=== PATIENT | female | born 1980 | race Caucasian/White ===

== ENCOUNTER 2017-01-31 12:23 | Emergency (ER) | payer OTHER ==
--- NOTE | 2017-01-31 13:32 | ED ---
General Adult HPI - General Chief complaint: Recheck/Abnormal Lab/Rx Stated complaint: Back Pain/Hypertension Time Seen by Provider: 01/31/17 13:09 Source: patient, RN notes reviewed Mode of arrival: ambulatory Limitations: no limitations - History of Present Illness Initial comments: Patient 36-year-old female who presents emergency room today with a chief complaint of elevated blood pressure. She does admit that she was trying to donate plasma earlier today and her blood pressure was elevated. She states that the bottom number was over 100. Patient also admits to some mild lower back discomfort. She states worse with movements. Denies any injury or trauma. States she does not take any blood pressure medication. She denies any other complaints or associated symptoms. Patient denies any recent fever, chills, shortness of breath, chest pain, abdominal pain, nausea or vomiting, numbness or tingling, dysuria or hematuria, constipation or diarrhea, headaches or visual changes, or any other complaints. - Related Data Home Medications Medication Instructions Recorded Confirmed Pnv with Ca,No.72/Iron/FA 1 tab PO DAILY 08/11/14 03/26/16 [ Plus Multivitamin Tab] Ergocalciferol [Vitamin D2] 50,000 unit PO Q7D 03/26/16 03/26/16 Previous Rx's Medication Instructions Recorded Labetalol [Trandate] 100 mg PO BID #60 tablet 03/27/16 Allergies Allergy/AdvReac Type Severity Reaction Status Date / Time No Known Allergies Allergy Verified 07/18/16 18:28 Review of Systems ROS Statement: Those systems with pertinent positive or pertinent negative responses have been documented in the HPI. ROS Other: All systems not noted in ROS Statement are negative. Past Medical History Past Medical History: No Reported History, Diabetes Mellitus Additional Past Medical History / Comment(s): Gestational diabetes with first obesity History of Any Multi-Drug Resistant Organisms: None Reported Past Surgical History: No Surgical Hx Reported, Section Additional Past Surgical History / Comment(s): D&C Past Anesthesia/Blood Transfusion Reactions: No Reported Reaction Past Psychological History: Bipolar, Depression Smoking Status: Never smoker Past Alcohol Use History: None Reported Past Drug Use History: None Reported - Past Family History Father History Unknown: Yes Family Medical History: Diabetes Mellitus, Sleep Apnea/CPAP/BIPAP General Exam Limitations: no limitations Course Vital Signs 01/31/17 13:02 Temperature 98.6 F Pulse Rate 95 Respiratory 16 Rate Blood Pressure 135/86 O2 Sat by Pulse 100 Oximetry Medical Decision Making - Medical Decision Making Patient's blood pressure stable here in the emergency room. Advised to continue to check blood pressure daily and take longer to family doctor. Patient's test is negative. Advised to use Tylenol/ibuprofen for back pain as needed. Advised return to emergency room for any other concerns. Disposition Clinical Impression: Blood pressure check, Low back pain Disposition: HOME SELF-CARE Condition: Good Instructions: Hypertension (ED) Additional Instructions: Please continue to monitor blood pressure as discussed follow-up the family doctor over the next 2 days. Please use Tylenol/ibuprofen as needed for pain. Please return to emergency room symptoms increase worsen or for any other concerns. Referrals: Ghassan Dacosta MD [Primary Care Provider] - 1-2 days Time of Disposition: 13:59
[2017-01-31 13:55] VITALS: BP 140/68; PULSE 91; RESP 18; TEMP 97.9
== END 2017-01-31 14:19 | disposition home or self-care (01) ==
LOC: EC 12:23
DX: Z01.30 Encounter for examination of blood pressure without abnormal findings (principal); M54.5 Low back pain; E66.9 Obesity, unspecified; Z68.43 Body mass index [BMI] 50.0-59.9, adult; Z79.899 Other long term (current) drug therapy
CPT/HCPCS: 81025; 99283

== ENCOUNTER 2018-04-20 12:47 | Emergency (ER) | payer OTHER ==
[2018-04-20 12:55] VITALS: RESP 18; TEMP 98.1
--- NOTE | 2018-04-20 13:39 | ED ---
General Adult HPI - General Chief complaint: Abdominal Pain Stated complaint: Left side pain & cramping Time Seen by Provider: 04/20/18 13:04 Source: patient, RN notes reviewed Mode of arrival: ambulatory Limitations: no limitations - History of Present Illness Initial comments: 37-year-old female presented emergency room today with a chief complaint of abdominal pain located on the left side and upper abdomen. Patient does admit that she's not had a motorcycle last 2 months. She does not that she's had some cramping lower abdomen. Patient states that she can feel pain left flank area. Patient denies any other symptoms. Patient denies any recent fever, chills, shortness of breath, chest pain, back pain, numbness or tingling, dysuria or hematuria, constipation or diarrhea, headaches or visual changes, or any other complaints. - Related Data Home Medications Medication Instructions Recorded Confirmed Citalopram Hydrobromide [CeleXA] 40 mg PO QAM 01/31/17 04/20/18 busPIRone HCL [Buspar] 30 mg PO TID 04/20/18 04/20/18 traZODone HCL 100 mg PO HS 04/20/18 04/20/18 Allergies Allergy/AdvReac Type Severity Reaction Status Date / Time No Known Allergies Allergy Verified 04/20/18 13:16 Review of Systems ROS Statement: Those systems with pertinent positive or pertinent negative responses have been documented in the HPI. ROS Other: All systems not noted in ROS Statement are negative. Past Medical History Past Medical History: No Reported History, Diabetes Mellitus Additional Past Medical History / Comment(s): Gestational diabetes with first obesity History of Any Multi-Drug Resistant Organisms: None Reported Past Surgical History: No Surgical Hx Reported, Section Additional Past Surgical History / Comment(s): D&C Past Anesthesia/Blood Transfusion Reactions: No Reported Reaction Past Psychological History: Bipolar, Depression Smoking Status: Never smoker Past Alcohol Use History: None Reported Past Drug Use History: None Reported - Past Family History Father History Unknown: Yes Family Medical History: Diabetes Mellitus, Sleep Apnea/CPAP/BIPAP General Exam - General Exam Comments Initial Comments: General: The patient is awake and alert, in no distress, and does not appear acutely ill. Eye: Pupils are equal, round and reactive to light. Extra-ocular movements are intact. No nystagmus. There is normal conjunctiva bilaterally. No signs of icterus. Ears, nose, mouth and throat: There are moist mucous membranes and no oral lesions. Neck: The neck is supple, there is no tenderness or JVD. Cardiovascular: There is a regular rate and rhythm. No murmur, rub or gallop is appreciated. Respiratory: Lungs are clear to auscultation, respirations are non-labored, breath sounds are equal. No wheezes, stridor, rales, or rhonchi. Gastrointestinal: Soft, non-distended, non-tender abdomen without masses or organomegaly noted. There is no rebound or guarding present. No CVA tenderness. Musculoskeletal: Normal ROM, no tenderness. Sensation intact. Strength 5/5. Pulses equal bilaterally 2+. Neurological: A&O x 3. CN II-XII intact, There are no obvious motor or sensory deficits. Coordination appears grossly intact. Speech is normal. Skin: Skin is warm and dry and no rashes or lesions are noted. Psychiatric: Cooperative, appropriate mood & affect, normal judgment. Limitations: no limitations Course Vital Signs 04/20/18 12:52 Temperature 98.1 F Pulse Rate 109 H Respiratory 18 Rate Blood Pressure 124/81 O2 Sat by Pulse 97 Oximetry Medical Decision Making - Medical Decision Making Ultrasound shows sonographic findings were compatible with antibiotics of ptosis. No sonographic evidence for cholelithiasis or cystitis. Spleen upper limits of normal. Results were discussed with the patient she did have a negative test here in the emergency room. Patient's doing well at this times been up moving around freely. Patient had an soft on palpation. Patient's labs reviewed. Patient will be discharged advised follow-up she does have an appointment with her OB in 2 days. Advised follow-up the family doctor in the emergency room symptoms increase or worsen. - Lab Data Result diagrams: 04/20/18 13:26 04/20/18 13:26 Lab Results 04/20/18 04/20/18 04/20/18 Range/Units 13:26 13:26 13:26 WBC 11.5 H (3.8-10.6) k/uL RBC 4.51 (3.80-5.40) m/uL Hgb 13.8 (11.4-16.0) gm/dL Hct 40.1 (34.0-46.0) % MCV 89.0 (80.0-100.0) fL MCH 30.7 (25.0-35.0) pg MCHC 34.5 (31.0-37.0) g/dL RDW 13.1 (11.5-15.5) % Plt Count 286 (150-450) k/uL Neutrophils % 66 % Lymphocytes % 24 % Monocytes % 5 % Eosinophils % 3 % Basophils % 1 % Neutrophils # 7.6 (1.3-7.7) k/uL Lymphocytes # 2.8 (1.0-4.8) k/uL Monocytes # 0.5 (0-1.0) k/uL Eosinophils # 0.3 (0-0.7) k/uL Basophils # 0.1 (0-0.2) k/uL Sodium 140 (137-145) mmol/L Potassium 4.4 (3.5-5.1) mmol/L Chloride 111 H (98-107) mmol/L Carbon Dioxide 25 (22-30) mmol/L Anion Gap 4 mmol/L BUN 21 H (7-17) mg/dL Creatinine 0.71 (0.52-1.04) mg/dL Est GFR (CKD-EPI)AfAm >90 (>60 ml/min/1.73 sqM) Est GFR (CKD-EPI)NonAf >90 (>60 ml/min/1.73 sqM) Glucose 98 (74-99) mg/dL Calcium 9.3 (8.4-10.2) mg/dL Total Bilirubin 0.7 (0.2-1.3) mg/dL AST 33 (14-36) U/L ALT 41 (9-52) U/L Alkaline Phosphatase 68 (38-126) U/L Total Protein 6.7 (6.3-8.2) g/dL Albumin 3.6 (3.5-5.0) g/dL Amylase 45 (30-110) U/L Lipase 52 (23-300) U/L HCG, Qual Not Detected Urine Color Yellow Urine Appearance Cloudy H (Clear) Urine pH 6.0 (5.0-8.0) Ur Specific [place] 1.021 (1.001-1.035) Urine Protein Negative (Negative) Urine Glucose (UA) Negative (Negative) Urine Ketones Negative (Negative) Urine Blood Negative (Negative) Urine Nitrite Negative (Negative) Urine Bilirubin Negative (Negative) Urine Urobilinogen <2.0 (<2.0) mg/dL Ur Leukocyte Esterase Small H (Negative) Urine RBC 1 (0-5) /hpf Urine WBC 1 (0-5) /hpf Ur Squamous Epith Cells 7 H (0-4) /hpf Urine Bacteria Rare H (None) /hpf Urine Mucus Rare H (None) /hpf Disposition Clinical Impression: Abdominal pain Disposition: HOME SELF-CARE Condition: Good Instructions: Abdominal Pain (ED) Additional Instructions: Please follow-up with CORRECTIONAL THERAPY DIRECTOR/family doctor in the next 2 days of symptoms have not improved. Please return to emergency room if the symptoms increase or worsen or for any other concerns. Is patient prescribed a controlled substance at d/c from ED?: No Referrals: Ghassan Dacosta MD [Primary Care Provider] - 1-2 days Time of Disposition: 15:02
[2018-04-20 13:42] LABS: Basophils # (A) 0.1 k/uL (0-0.2); Basophils % (A) 1 %; Eosinophils # (A) 0.3 k/uL (0-0.7); Eosinophils % (A) 3 %; HCT 40.1 % (34.0-46.0); HGB 13.8 gm/dL (11.4-16.0); Lymphocytes # (A) 2.8 k/uL (1.0-4.8); Lymphocytes % (A) 24 %; MCH 30.7 pg (25.0-35.0); MCHC 34.5 g/dL (31.0-37.0); Mean Platelet Volume 6.9; Monocytes # (A) 0.5 k/uL (0-1.0); Monocytes % (A) 5 %; Neutrophils # (A) 7.6 k/uL (1.3-7.7); Neutrophils % (A) 66 %; Platelet Count 286 k/uL (150-450); RBC 4.51 m/uL (3.80-5.40); RDW 13.1 % (11.5-15.5); WBC 11.5 k/uL (3.8-10.6)
[2018-04-20 13:48] LABS: HCG,Qualitative Serum Not Detected
[2018-04-20 13:50] LABS: Appearance,Urine Cloudy (Clear); Bacteria,Urine Rare /hpf; Bilirubin,Urine Negative (Negative); Blood,Urine Negative (Negative); Color,Urine Yellow; Glucose,Urine (UA) Negative (Negative); Ketones,Urine Negative (Negative); Leukocyte Esterase,Urine Small (Negative); Mucus,Urine Rare /hpf; Nitrite,Urine Negative (Negative); Protein,Urine Negative (Negative); RBC,Urine 1 /hpf (0-5); Specific Gravity,Urine 1.021 (1.001-1.035); Squamous Epithelial Cell,Urine 7 /hpf (0-4); Urobilinogen,Urine <2.0 mg/dL (<2.0)
[2018-04-20 13:51] LABS: ALT 41 U/L (9-52); AST 33 U/L (14-36); Albumin 3.6 g/dL (3.5-5.0); Alkaline Phosphatase 68 U/L (38-126); Amylase 45 U/L (30-110); Anion Gap 4 mmol/L; Blood Urea Nitrogen 21 mg/dL (7-17); Calcium 9.3 mg/dL (8.4-10.2); Carbon Dioxide 25 mmol/L (22-30); Chloride 111 mmol/L (98-107); Glucose 98 mg/dL (74-99); Lipase 52 U/L (23-300); Potassium 4.4 mmol/L (3.5-5.1); Sodium 140 mmol/L (137-145); Total Bilirubin 0.7 mg/dL (0.2-1.3); Total Protein 6.7 g/dL (6.3-8.2)
--- NOTE | 2018-04-20 14:33 | US ---
EXAMINATION TYPE: US abdomen complete DATE OF EXAM: 04/20/2018 COMPARISON: NONE CLINICAL HISTORY: Pain. Abdominal pain for 1 week EXAM MEASUREMENTS: Liver Length: 20.2 cm Gallbladder Wall: 0.2 cm CBD: 0.4 cm Spleen: 13.1 cm Right Kidney: 11.0 x 4.8 x 5.0 cm Left Kidney: 12.4 x 5.4 x 4.9 cm Extreme technical limitations due to patient's body habitus (330+ pounds) and large amount of overl adi bowel content Pancreas: Obscured by bowel gas Liver: enlarged, attenuating Gallbladder: no evidence of stones Evidence for sonographic Streeter's sign: yes CBD: limited evaluation Spleen: upper limits of normal Right Kidney: no evidence of hydronephrosis Left Kidney: slightly lobulated contour upper pole thought to represent a dromedary hump Upper IVC: wnl Abd Aorta: visualized portions appear wnl, distal/bifurcation obscured The intrahepatic portion of the IVC and proximal abdominal aorta are within normal limits. There is no evidence of cholelithiasis. Common bile duct is unremarkable. The visualized portions of the aquino creas are homogenous. The spleen is unremarkable. Kidneys are symmetric and free of hydronephrosis. No renal lesions are seen. IMPRESSION: 1. Sonographic findings most compatible with hepatic steatosis overall moderate degree. 2. No sonographic evidence of cholelithiasis or acute cholecystitis. 3. Spleen is upper limits of normal size.
[2018-04-20 15:13] VITALS: BP 98/58; PULSE 93
== END 2018-04-20 15:14 | disposition home or self-care (01) ==
LOC: EC 12:47
DX: R10.12 Left upper quadrant pain (principal); F31.9 Bipolar disorder, unspecified; Z32.02 Encounter for pregnancy test, result negative; Z79.899 Other long term (current) drug therapy
CPT/HCPCS: 36415; 76700; 80053; 81001; 82150; 83690; 84703; 85025; 99284

== ENCOUNTER → 2018-05-04 | Outpatient (CLI) | payer OTHER ==
[2018-05-04 09:26] LABS: HCT 37.8 % (34.0-46.0); HGB 12.7 gm/dL (11.4-16.0); MCH 29.8 pg (25.0-35.0); MCHC 33.5 g/dL (31.0-37.0); MCV 88.8 fL (80.0-100.0); Mean Platelet Volume 6.8; Platelet Count 250 k/uL (150-450); RBC 4.25 m/uL (3.80-5.40); WBC 7.9 k/uL (3.8-10.6)
[2018-05-04 16:41] LABS: ALT 27 U/L (8-44); AST 27 U/L (13-35); Albumin/Globulin Ratio 2.05 (1.20-2.10); Alkaline Phosphatase 85 U/L (41-126); Calcium 8.7 mg/dL (8.7-10.3); Carbon Dioxide 25.6 mmol/L (21.6-31.8); Chloride 108 mmol/L (96-109); Globulin 1.9 g/dL (2.1-3.7); Glucose 121 mg/dL (70-110); Sodium 141 mmol/L (135-145); Total Bilirubin 0.6 mg/dL (0.3-1.2); Total Protein 5.8 g/dL (6.2-8.2)
[2018-05-04 16:47] LABS: DHEA Sulfate 98.4 ug/dL (26.0-430.0)
[2018-05-04 16:49] LABS: Sex Horm Bind Glob 68.4 nmol/L (10.84-180.00)
[2018-05-04 16:51] LABS: HCG,Quantitative Serum <2.0 mIU/mL
[2018-05-04 20:09] LABS: Hemoglobin A1C 5.5 % (4.0-6.0)
[2018-05-05 13:58] LABS: Anti-Mullerian Hormone 0.61 ng/mL (0.18 - 5.68)
== END ==
LOC: LABWHC1 08:46
PROVIDERS: ATTEND Obstetrics & Gynecology
DX: N91.1 Secondary amenorrhea (principal); E66.01 Morbid (severe) obesity due to excess calories
CPT/HCPCS: 36415; 80053; 82157; 82397; 82627; 83001; 83036; 83498; 83525; 84146; 84270; 84403; 84443; 84702; 85027

== ENCOUNTER 2018-11-23 22:00 | Emergency (ER) | payer OTHER ==
--- NOTE | 2018-11-23 23:45 | ED ---
Abdominal Pain HPI - General Chief Complaint: Abdominal Pain Stated Complaint: left side abdominal pain Time Seen by Provider: 11/23/18 23:28 Source: patient Mode of arrival: ambulatory Limitations: no limitations - History of Present Illness Initial Comments: This patient is a 38-year-old woman who presents to have reevaluation of a lipoma located in the left upper quadrant of the abdominal wall. The patient states that she had been having symptoms for over 2 months. She was seen at [facility] where the diagnosis was made approximately 2 months ago. She states that over the past few weeks it is been flaring up. She notes that it is tender when she presses on it. She is not having any symptoms that she believes indicate infection, including no fever or chills. No redness or warmth. No drainage. Patient states that when she is not pressing on it is not causing any pain. No nausea or vomiting. No diarrhea or constipation. No urinary symptoms. MD Complaint: other Onset/Timin -: month(s) Location: [facility] Radiation: none Severity: mild Quality: dull Consistency: constant Improves With: nothing Worsens With: nothing Associated Symptoms: denies other symptoms - Related Data Home Medications Medication Instructions Recorded Confirmed Citalopram Hydrobromide [CeleXA] 40 mg PO QAM 01/31/17 04/20/18 busPIRone HCL [Buspar] 30 mg PO TID 04/20/18 04/20/18 traZODone HCL 100 mg PO HS 04/20/18 04/20/18 Allergies Allergy/AdvReac Type Severity Reaction Status Date / Time No Known Allergies Allergy Verified 11/23/18 22:10 Review of Systems ROS Statement: Those systems with pertinent positive or pertinent negative responses have been documented in the HPI. ROS Other: All systems not noted in ROS Statement are negative. Constitutional: Denies: fever, chills Respiratory: Denies: cough Cardiovascular: Denies: chest pain Gastrointestinal: Reports: as per HPI, abdominal pain. Denies: nausea, vomiting, diarrhea, constipation Genitourinary: Denies: dysuria, hematuria Musculoskeletal: Denies: back pain Skin: Denies: rash Past Medical History Past Medical History: Diabetes Mellitus Additional Past Medical History / Comment(s): Gestational diabetes with first obesity History of Any Multi-Drug Resistant Organisms: None Reported Past Surgical History: No Surgical Hx Reported, Section Additional Past Surgical History / Comment(s): D&C Past Anesthesia/Blood Transfusion Reactions: No Reported Reaction Past Psychological History: Bipolar, Depression Smoking Status: Never smoker Past Alcohol Use History: None Reported Past Drug Use History: None Reported - Past Family History Father History Unknown: Yes Family Medical History: Diabetes Mellitus, Sleep Apnea/CPAP/BIPAP General Exam Limitations: no limitations General appearance: alert, in no apparent distress Respiratory exam: Present: normal lung sounds bilaterally. Absent: respiratory distress, wheezes, rales, rhonchi, stridor Cardiovascular Exam: Present: regular rate, normal rhythm, normal heart sounds. Absent: systolic murmur, diastolic murmur, rubs, gallop GI/Abdominal exam: Present: soft, mass (There is an approximately 2-3 cm mobile, rubbery, mass in the left upper quadrants abdominal wall that is consistent with lipoma. There is no tenderness it within the abdomen itself.). Absent: distended, tenderness, guarding, rebound, rigid Skin exam: Present: warm, dry, intact, normal color. Absent: rash Course Vital Signs 11/23/18 22:08 Temperature 98.1 F Pulse Rate 116 H Respiratory 22 Rate Blood Pressure 131/81 O2 Sat by Pulse 99 Oximetry Disposition Clinical Impression: Lipoma Disposition: HOME SELF-CARE Condition: Good Is patient prescribed a controlled substance at d/c from ED?: No Referrals: Ghassan Dacosta MD [Primary Care Provider] - 1-2 days Perez Brito MD [STAFF PHYSICIAN] - 1-2 days
[2018-11-24 00:25] VITALS: BP 134/91; PULSE 100; RESP 20; TEMP 97
== END 2018-11-24 00:22 | disposition home or self-care (01) ==
LOC: EC 22:00
DX: D17.1 Benign lipomatous neoplasm of skin and subcutaneous tissue of trunk (principal); F32.9 Major depressive disorder, single episode, unspecified; E66.9 Obesity, unspecified; Z68.43 Body mass index [BMI] 50.0-59.9, adult; Z79.899 Other long term (current) drug therapy
CPT/HCPCS: 99283

== ENCOUNTER 2018-12-10 06:57 | Day surgery (SDC) | payer OTHER ==
[2018-12-07 13:19] VITALS: BMI 57.3
[~2018-12-10 06:57] MED LIST: DEXAMETHASONE SOD PHOSPHATE 10 MG/ML 1 ML VIAL IV ONE; HYDROmorphone 0.5 MG/0.5 ML SYRINGE IVP PRN; LACTATED RINGERS 1,000 ML IV SCH; MIDAZOLAM 2 MG/2 ML VIAL IV PRN; ONDANSETRON 4 MG/2 ML VIAL IVP ONE; SCOPOLAMINE 1.5MG/72HR PATCH TRANSDERM ONE
[2018-12-10] MEDS ORDERED: HEPARIN SODIUM,PORCINE 5,000 UNIT/ML 1 ML VIAL SQ ONE (07:37)
--- NOTE | 2018-12-10 08:44 | P.GSHP ---
History of Present Illness H&P Date: 12/10/18 Chief Complaint: Abdominal wall lipoma This is a 30-year-old female who has a 10 cm abdominal wall lipoma located left upper quadrant. Patient resents today for excision. Past Medical History Past Medical History: Hyperlipidemia Additional Past Medical History / Comment(s): Gestational diabetes with first , History of Any Multi-Drug Resistant Organisms: None Reported Past Surgical History: Section Additional Past Surgical History / Comment(s): D&C Past Anesthesia/Blood Transfusion Reactions: No Reported Reaction Smoking Status: Never smoker - Past Family History Father History Unknown: Yes Family Medical History: Diabetes Mellitus Medications and Allergies Home Medications Medication Instructions Recorded Confirmed Type Citalopram Hydrobromide [CeleXA] 40 mg PO QAM 01/31/17 12/10/18 History busPIRone HCL [Buspar] 30 mg PO TID 04/20/18 12/10/18 History traZODone HCL 100 mg PO HS 04/20/18 12/10/18 History Atorvastatin [Lipitor] 10 mg PO HS 12/07/18 12/10/18 History Multivitamin [Multivitamins Adult 1 each PO DAILY 12/07/18 12/10/18 History Gummies] Allergies Allergy/AdvReac Type Severity Reaction Status Date / Time No Known Allergies Allergy Verified 12/10/18 07:16 Surgical - Exam Vital Signs Temp Pulse Resp BP Pulse Ox 97.6 F 101 H 17 138/93 98 12/10/18 07:24 12/10/18 07:24 12/10/18 07:24 12/10/18 07:24 12/10/18 07:24 - General well developed, well nourished, no distress - Eyes PERRL - ENT normal pinna - Neck no masses - Respiratory normal expansion - Cardiovascular Rhythm: regular - Abdomen Abdomen: soft, non tender - Integumentary 10 cm abdominal wall lipoma located left upper quadrant. Assessment and Plan Assessment: Abdominal wall lipoma. We'll perform excision.
[2018-12-10] MEDS ORDERED: fentaNYL (PF) 50 MCG/ML 2 ML AMP ONE (08:50)
[2018-12-10] MEDS ORDERED: ESMOLOL 100 MG/10 ML VIAL ONE (08:50)
[2018-12-10] MEDS ORDERED: PROPOFOL 10 MG/ML 20 ML VIAL IV ONE (08:50)
[2018-12-10] MEDS ORDERED: HYDROmorphone (PF) 1 MG/ML ONE (08:50)
[2018-12-10] MEDS ORDERED: MIDAZOLAM 2 MG/2 ML VIAL ONE (08:50)
[2018-12-10] MEDS ORDERED: LIDOCAINE 1% INJ 10MG/ML (20 ML MDV) ONE (08:50)
[2018-12-10] MEDS ORDERED: KETAMINE 10 MG/ML 20 ML VIAL ONE (08:50)
[2018-12-10] MEDS ORDERED: BUPIVACAINE (PF) 0.5% 30 ML VIAL SQ ONE ×2 (09:11)
[2018-12-10] MEDS ORDERED: SODIUM CHLORIDE 0.9% 50 ML with ceFAZolin 2,000 MG IV ONE ×2 (09:15)
--- NOTE | 2018-12-10 09:48 | P.OP ---
Date of Procedure: 12/10/18 Preoperative Diagnosis: Abdominal wall lipoma Postoperative Diagnosis: Abdominal wall lipoma Procedure(s) Performed: Excision of abdominal wall lipoma Anesthesia: MAC Surgeon: Perez Brito Estimated Blood Loss (ml): 5 Pathology: other (Left upper quadrant abdominal wall lipoma) Condition: stable Disposition: PACU Description of Procedure: The patient's placed in the table in the supine position. She received IV sedation. Her abdomen was prepped and draped usual sterile fashion. The patient had a 10 cm lipoma located in the left upper quadrant. The area was anesthetized 1% local Xylocaine. The skin was incised with 15 blade and then using electrocautery the lipoma was excised. The lipoma measured approximately 5 x 10 cm. The specimen sent to pathology. A BRITTNI drain was placed the wound brought through separate stab incision The Bovie was used for hemostasis. The skin was closed with brigette. Patient top she will was sent to recovery in stable condition.
[2018-12-10 09:53] VITALS: TEMP 97
[2018-12-10 10:48] VITALS: BP 115/73; PULSE 102; RESP 18
[2018-12-10] MEDS ORDERED: HYDROcodone/APAP 5-325MG 1 EACH TAB PO ONE (11:33)
== END 2018-12-10 12:18 | disposition home or self-care (01) ==
LOC: OR 06:57
PROVIDERS: ATTEND Surgery
DX: D17.1 Benign lipomatous neoplasm of skin and subcutaneous tissue of trunk (principal); E78.5 Hyperlipidemia, unspecified; F39 Unspecified mood [affective] disorder; Z79.899 Other long term (current) drug therapy
CPT/HCPCS: 81025; 88304; 11406; J2250; J1644; J1100; J2405; J0690; J2001; J3010; J1170 ×2; J2704

== ENCOUNTER 2019-09-05 14:25 | Emergency (ER) | payer OTHER ==
[2019-09-05 14:40] VITALS: RESP 18; TEMP 99.2
[2019-09-05] MEDS ORDERED: SODIUM CHLORIDE 0.9% 1,000 ML IV STA (14:52)
[2019-09-05] MEDS ORDERED: ONDANSETRON 4 MG/2 ML VIAL IVP STA (14:53)
[2019-09-05] MEDS ORDERED: KETOROLAC 30 MG/ML 1 ML VIAL IVP STA (14:53)
[2019-09-05] MEDS ORDERED: ACETAMINOPHEN TAB 500 MG TAB PO STA (14:54)
[2019-09-05 14:55] LABS: Glucose,Whole Blood 147 mg/dL (75-99)
[2019-09-05 15:15] LABS: Basophils % (A) 0 %; Eosinophils # (A) 0.2 k/uL (0-0.7); Eosinophils % (A) 2 %; HCT 44.9 % (34.0-46.0); Lymphocytes # (A) 0.7 k/uL (1.0-4.8); Lymphocytes % (A) 9 %; MCHC 33.3 g/dL (31.0-37.0); MCV 86.9 fL (80.0-100.0); Mean Platelet Volume 7.6; Monocytes # (A) 0.3 k/uL (0-1.0); Monocytes % (A) 3 %; Neutrophils # (A) 7.3 k/uL (1.3-7.7); Neutrophils % (A) 85 %; Platelet Count 237 k/uL (150-450); RBC 5.17 m/uL (3.80-5.40); RDW 12.9 % (11.5-15.5); WBC 8.7 k/uL (3.8-10.6)
--- NOTE | 2019-09-05 15:17 | ED ---
Nausea/Vomiting/Diarrhea HPI - General Chief complaint: Nausea/Vomiting/Diarrhea Stated complaint: dizziness Time Seen by Provider: 09/05/19 14:41 Source: patient, RN notes reviewed, old records reviewed Mode of arrival: ambulatory Limitations: no limitations - History of Present Illness Initial comments: This patient's a 39-year-old female who presents emergency Department today with complaints of nausea, abdominal pain feeling general malaise for the past 2 days. Complaint of upper respiratory congestion, but denies specific cough. She denies any recent fever. Patient states she does also complain of some upper abdominal pain complaints of nausea. She is had no changes in stools or urination. She does report possible chance of . - Related Data Home Medications Medication Instructions Recorded Confirmed Citalopram Hydrobromide [CeleXA] 40 mg PO QAM 01/31/17 12/10/18 busPIRone HCL [Buspar] 30 mg PO TID 04/20/18 12/10/18 traZODone HCL 100 mg PO HS 04/20/18 12/10/18 Atorvastatin [Lipitor] 10 mg PO HS 12/07/18 12/10/18 Multivitamin [Multivitamins Adult 1 each PO DAILY 12/07/18 12/10/18 Gummies] Previous Rx's Medication Instructions Recorded Docusate [Colace] 100 mg PO BID #20 capsule 12/10/18 HYDROcodone/APAP 5-325MG [[place] 1 tab PO Q6HR PRN #10 tab 12/10/18 5-325] Ondansetron Odt [Zofran Odt] 4 mg PO Q8HR PRN #12 tab 09/05/19 Allergies Allergy/AdvReac Type Severity Reaction Status Date / Time No Known Allergies Allergy Verified 09/05/19 14:40 Review of Systems ROS Statement: Those systems with pertinent positive or pertinent negative responses have been documented in the HPI. ROS Other: All systems not noted in ROS Statement are negative. Past Medical History Past Medical History: Hyperlipidemia Additional Past Medical History / Comment(s): Gestational diabetes with first , History of Any Multi-Drug Resistant Organisms: None Reported Past Surgical History: Section Additional Past Surgical History / Comment(s): D&C Past Anesthesia/Blood Transfusion Reactions: No Reported Reaction Past Psychological History: Anxiety, Bipolar, Depression Smoking Status: Never smoker - Past Family History Father History Unknown: Yes Family Medical History: Diabetes Mellitus General Exam - General Exam Comments Initial Comments: Alert and oriented 39-year-old female. No distress. General: Well appearing, well nourished, in no distress. Oriented x 3, normal mood and affect . Ambulating without difficulty. Skin: Good turgor, no rash, unusual bruising or prominent lesions Hair: Normal texture and distribution. HEENT: Head: Normocephalic, atraumatic, no visible or palpable masses, depressions, or scaring. Eyes: Visual acuity intact, conjunctiva clear, sclera non-icteric, EOM intact, PERRL. Ears: EACs clear, TMs translucent & cone of light visualized. hearing intact. Nose: No external lesions, mucosa non-inflamed, septum and turbinates normal Mouth: Mucous membranes moist, no mucosal lesions. Teeth/Gums: No obvious caries or periodontal disease. No gingival inflammation or significant resorption. Pharynx: Mucosa non-inflamed, no tonsillar hypertrophy or exudate Neck: Supple, without lesions, bruits, or adenopathy, thyroid non-enlarged and non-tender Heart: No cardiomegaly or thrills; regular rate and rhythm, no murmur or gallop Lungs: Clear to auscultation and percussion Abdomen: Bowel sounds normal, epigastric tenderness. Extremities: No amputations or deformities, cyanosis, edema or varicosities, peripheral pulses intact Musculoskeletal: Normal gait and station. No misalignment, asymmetry, crepitation, defects, tenderness, masses, effusions, decreased range of motion, instability, atrophy or abnormal strength or tone in the head, neck, spine, ribs, pelvis or extremities. Neurologic: CN 2-12 normal. Sensation to pain, touch, and proprioception normal. DTRs normal in upper and lower extremities. No pathologic reflexes. Psychiatric: Oriented X3, intact recent and remote memory, judgment and insight, normal mood and affect. Limitations: no limitations Course Vital Signs 09/05/19 09/05/19 14:34 17:02 Temperature 99.2 F Pulse Rate 124 H 99 Respiratory 18 18 Rate Blood Pressure 152/85 150/88 O2 Sat by Pulse 96 98 Oximetry Medical Decision Making - Medical Decision Making [id number] male presents emergency room today with nausea, prescription condition. Patient was given IV fluids labwork obtained. She is given Zofran and Toradol. Shows report resolution of her nausea and feels much better. Patient's shows elevated transaminases. Ultrasound was completed and shows no evidence of fracture. Patient informed that she needs follow-up with her primary care doctor in the ultrasound she is evidence of hepatic steatosis. He did run acute hepatitis panels and I discussed the results to me pending and she can follow-up with her PCP in regards to this. Patient understands she will plan will comply. Return parameters were discussed - Lab Data Result diagrams: 09/05/19 15:00 09/05/19 15:00 Lab Results 09/05/19 09/05/19 09/05/19 Range/Units 14:41 15:00 15:00 WBC 8.7 (3.8-10.6) k/uL RBC 5.17 (3.80-5.40) m/uL Hgb 15.0 (11.4-16.0) gm/dL Hct 44.9 (34.0-46.0) % MCV 86.9 (80.0-100.0) fL MCH 29.0 (25.0-35.0) pg MCHC 33.3 (31.0-37.0) g/dL RDW 12.9 (11.5-15.5) % Plt Count 237 (150-450) k/uL Neutrophils % 85 % Lymphocytes % 9 % Monocytes % 3 % Eosinophils % 2 % Basophils % 0 % Neutrophils # 7.3 (1.3-7.7) k/uL Lymphocytes # 0.7 L (1.0-4.8) k/uL Monocytes # 0.3 (0-1.0) k/uL Eosinophils # 0.2 (0-0.7) k/uL Basophils # 0.0 (0-0.2) k/uL Sodium (137-145) mmol/L Potassium (3.5-5.1) mmol/L Chloride (98-107) mmol/L Carbon Dioxide (22-30) mmol/L Anion Gap mmol/L BUN (7-17) mg/dL Creatinine (0.52-1.04) mg/dL Est GFR (CKD-EPI)AfAm (>60 ml/min/1.73 sqM) Est GFR (CKD-EPI)NonAf (>60 ml/min/1.73 sqM) Glucose (74-99) mg/dL POC Glucose (mg/dL) 147 H (75-99) mg/dL POC Glu Kosher Butcher ID Hloly Mcrae Calcium (8.4-10.2) mg/dL Total Bilirubin (0.2-1.3) mg/dL AST (14-36) U/L ALT (4-34) U/L Alkaline Phosphatase (38-126) U/L Total Protein (6.3-8.2) g/dL Albumin (3.5-5.0) g/dL Amylase (30-110) U/L Lipase (23-300) U/L Urine Color Yellow Urine Appearance Cloudy H (Clear) Urine pH 6.5 (5.0-8.0) Ur Specific [place] 1.027 (1.001-1.035) Urine Protein Trace H (Negative) Urine Glucose (UA) Negative (Negative) Urine Ketones Negative (Negative) Urine Blood Negative (Negative) Urine Nitrite Negative (Negative) Urine Bilirubin Negative (Negative) Urine Urobilinogen <2.0 (<2.0) mg/dL Ur Leukocyte Esterase Small H (Negative) Urine RBC 1 (0-5) /hpf Urine WBC 7 H (0-5) /hpf Ur Squamous Epith Cells 38 H (0-4) /hpf Amorphous Sediment Rare H (None) /hpf Urine Bacteria Occasional H (None) /hpf Urine Mucus Rare H (None) /hpf Urine HCG, Qual (Not Detectd) Influenza Type A RNA (Not Detectd) Influenza Type B (PCR) (Not Detectd) 09/05/19 09/05/19 09/05/19 Range/Units 15:00 15:00 15:09 WBC (3.8-10.6) k/uL RBC (3.80-5.40) m/uL Hgb (11.4-16.0) gm/dL Hct (34.0-46.0) % MCV (80.0-100.0) fL MCH (25.0-35.0) pg MCHC (31.0-37.0) g/dL RDW (11.5-15.5) % Plt Count (150-450) k/uL Neutrophils % % Lymphocytes % % Monocytes % % Eosinophils % % Basophils % % Neutrophils # (1.3-7.7) k/uL Lymphocytes # (1.0-4.8) k/uL Monocytes # (0-1.0) k/uL Eosinophils # (0-0.7) k/uL Basophils # (0-0.2) k/uL Sodium 138 (137-145) mmol/L Potassium 4.6 (3.5-5.1) mmol/L Chloride 103 (98-107) mmol/L Carbon Dioxide 28 (22-30) mmol/L Anion Gap 7 mmol/L BUN 16 (7-17) mg/dL Creatinine 0.68 (0.52-1.04) mg/dL Est GFR (CKD-EPI)AfAm >90 (>60 ml/min/1.73 sqM) Est GFR (CKD-EPI)NonAf >90 (>60 ml/min/1.73 sqM) Glucose 153 H (74-99) mg/dL POC Glucose (mg/dL) (75-99) mg/dL POC Glu Kosher Butcher ID Calcium 8.8 (8.4-10.2) mg/dL Total Bilirubin 1.3 (0.2-1.3) mg/dL AST 181 H (14-36) U/L ALT 113 H (4-34) U/L Alkaline Phosphatase 155 H (38-126) U/L Total Protein 7.3 (6.3-8.2) g/dL Albumin 4.2 (3.5-5.0) g/dL Amylase 52 (30-110) U/L Lipase 85 (23-300) U/L Urine Color Urine Appearance (Clear) Urine pH (5.0-8.0) Ur Specific [place] (1.001-1.035) Urine Protein (Negative) Urine Glucose (UA) (Negative) Urine Ketones (Negative) Urine Blood (Negative) Urine Nitrite (Negative) Urine Bilirubin (Negative) Urine Urobilinogen (<2.0) mg/dL Ur Leukocyte Esterase (Negative) Urine RBC (0-5) /hpf Urine WBC (0-5) /hpf Ur Squamous Epith Cells (0-4) /hpf Amorphous Sediment (None) /hpf Urine Bacteria (None) /hpf Urine Mucus (None) /hpf Urine HCG, Qual Not Detected (Not Detectd) Influenza Type A RNA Not Detected (Not Detectd) Influenza Type B (PCR) Not Detected (Not Detectd) Disposition Clinical Impression: Nausea & vomiting, Elevated transaminase level Disposition: HOME SELF-CARE Condition: Good Instructions (If sedation given, give patient instructions): Acute Nausea and Vomiting (ED), Non-Alcoholic Fatty Liver Disease (ED) Additional Instructions: Please use medication as discussed. Please follow up with family doctor if symptoms have not improved over the next two days. [facility] symptoms increase or worsen or for any other concerns. Prescriptions: Ondansetron Odt [Zofran Odt] 4 mg PO Q8HR PRN #12 tab PRN Reason: Nausea Is patient prescribed a controlled substance at d/c from ED?: No Referrals: Ghassan Dacosta MD [Primary Care Provider] - 1-2 days Time of Disposition: 16:51
[2019-09-05 15:22] LABS: ALT 113 U/L (4-34); AST 181 U/L (14-36); African American GFR (CKD) >90 (>60 ml/min/1.73 sqM); Albumin 4.2 g/dL (3.5-5.0); Alkaline Phosphatase 155 U/L (38-126); Amylase 52 U/L (30-110); Anion Gap 7 mmol/L; Blood Urea Nitrogen 16 mg/dL (7-17); Calcium 8.8 mg/dL (8.4-10.2); Carbon Dioxide 28 mmol/L (22-30); Chloride 103 mmol/L (98-107); Glucose 153 mg/dL (74-99); Non-African American GFR(CKD) >90 (>60 ml/min/1.73 sqM); Potassium 4.6 mmol/L (3.5-5.1); Sodium 138 mmol/L (137-145); Total Bilirubin 1.3 mg/dL (0.2-1.3); Total Protein 7.3 g/dL (6.3-8.2)
[2019-09-05 15:24] LABS: Amorphous Sediment,Urine Rare /hpf; Appearance,Urine Cloudy (Clear); Bacteria,Urine Occasional /hpf; Bilirubin,Urine Negative (Negative); Blood,Urine Negative (Negative); Color,Urine Yellow; Glucose,Urine (UA) Negative (Negative); Ketones,Urine Negative (Negative); Leukocyte Esterase,Urine Small (Negative); Mucus,Urine Rare /hpf; Nitrite,Urine Negative (Negative); PH, Urine 6.5 (5.0-8.0); Protein,Urine Trace (Negative); RBC,Urine 1 /hpf (0-5); Specific Gravity,Urine 1.027 (1.001-1.035); Squamous Epithelial Cell,Urine 38 /hpf (0-4); Urobilinogen,Urine <2.0 mg/dL (<2.0); WBC,Urine 7 /hpf (0-5)
--- NOTE | 2019-09-05 16:29 | US ---
EXAMINATION TYPE: US gallbladder DATE OF EXAM: 09/05/2019 COMPARISON: US 04/20/2018 CLINICAL HISTORY: transaminitis. Limited exam due to patient body habitus EXAM MEASUREMENTS: Liver Length: 22.3 cm Gallbladder Wall: 0.2 cm CBD: 0.5 cm Right Kidney: 11.3 x 4.7 x 5.8 cm Pancreas: Obscured by bowel gas Liver: Enlarged, coarse, heterogeneous Gallbladder: No stones visualized Evidence for sonographic Streeter's sign: No CBD: wnl as visualized Right Kidney: No hydronephrosis or masses seen IMPRESSION: 1. Hepatomegaly correlate for hepatic steatosis, diffuse hepatocellular disease or hepatitis.
[2019-09-05 17:07] VITALS: BP 150/88; PULSE 99
[2019-09-05 18:13] LABS: Hepatitis A Antibody IgM NEGATIVE
[2019-09-05 23:57] LABS: Hepatitis B Core IgM Non-Reactive (Non-Reactive); Hepatitis B Surface Antigen Non-Reactive (Non-Reactive); Hepatitis C IgG Antibody Non-Reactive (Non-Reactive)
[2019-09-06 07:20] LABS: EBV-EA (IgG) <0.2 AI; EBV-EBNA(IgG) >8.0 AI; EBV-VCA (IgG) 3.7 AI; EBV-VCA (IgM) <0.2 AI
== END 2019-09-05 17:02 | disposition home or self-care (01) ==
LOC: EC 14:25
DX: R11.2 Nausea with vomiting, unspecified (principal); R74.0 Nonspecific elevation of levels of transaminase and lactic acid dehydrogenase [LDH]; E78.5 Hyperlipidemia, unspecified; F31.9 Bipolar disorder, unspecified; F41.9 Anxiety disorder, unspecified; Z79.899 Other long term (current) drug therapy
CPT/HCPCS: 99284 ×2; 96374 ×2; 96375 ×2; 96361 ×2; 36415; 86665 ×2; 80053; 80074; 86663; 82150; 83690; 85025; 81001; 81025; 86664; 87502; 76705; J2405; J1885

== ENCOUNTER 2019-11-06 14:39 | Emergency (ER) | payer OTHER ==
[2019-11-06 14:50] VITALS: RESP 18
[2019-11-06 14:51] LABS: Glucose,Whole Blood 268 mg/dL (75-99)
[2019-11-06] MEDS ORDERED: SODIUM CHLORIDE 0.9% 1,000 ML IV STA (15:09)
[2019-11-06] MEDS ORDERED: ONDANSETRON 4 MG/2 ML VIAL IVP STA (15:16)
--- NOTE | 2019-11-06 15:29 | ED ---
General Adult HPI - General Chief complaint: Recheck/Abnormal Lab/Rx Stated complaint: high sugar count Time Seen by Provider: 11/06/19 14:55 Source: patient Mode of arrival: ambulatory Limitations: no limitations - History of Present Illness Initial comments: Patient is a 39-year-old female, morbidly obese, type II diabetic presenting to the emergency department a chief complaint of high blood sugars. Patient reports last night she developed nausea but no vomiting and obtain a blood sugar level of 500. Patient reports this continued through the night and this morning she had a blood sugar of high 200s. Patient reports nausea is still persistent but there is no vomiting or diarrhea. Patient does report diffuse abdominal pain and discomfort. Patient reports she only takes metformin 1000 mg twice a day. States her blood sugar typically runs between 2-300. She does report polyuria over the last week. Also reports a possibility of because her menstrual period is late. - Related Data Home Medications Medication Instructions Recorded Confirmed Citalopram Hydrobromide [CeleXA] 40 mg PO QAM 01/31/17 12/10/18 busPIRone HCL [Buspar] 30 mg PO TID 04/20/18 12/10/18 traZODone HCL 100 mg PO HS 04/20/18 12/10/18 Atorvastatin [Lipitor] 10 mg PO HS 12/07/18 12/10/18 Multivitamin [Multivitamins Adult 1 each PO DAILY 12/07/18 12/10/18 Gummies] Previous Rx's Medication Instructions Recorded Docusate [Colace] 100 mg PO BID #20 capsule 12/10/18 HYDROcodone/APAP 5-325MG [[place] 1 tab PO Q6HR PRN #10 tab 12/10/18 5-325] Ondansetron Odt [Zofran Odt] 4 mg PO Q8HR PRN #12 tab 09/05/19 Allergies Allergy/AdvReac Type Severity Reaction Status Date / Time No Known Allergies Allergy Verified 11/06/19 14:50 Review of Systems ROS Statement: Those systems with pertinent positive or pertinent negative responses have been documented in the HPI. ROS Other: All systems not noted in ROS Statement are negative. 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 Past Anesthesia/Blood Transfusion Reactions: No Reported Reaction Past Psychological History: Anxiety, Bipolar, Depression Smoking Status: Never smoker Past Alcohol Use History: None Reported Past Drug Use History: None Reported - Past Family History Father History Unknown: Yes Family Medical History: Diabetes Mellitus General Exam Limitations: no limitations General appearance: alert, in no apparent distress, obese Head exam: Present: atraumatic, normocephalic, normal inspection Eye exam: Present: normal appearance, PERRL, EOMI Pupils: Present: normal accommodation ENT exam: Present: normal exam, normal oropharynx, mucous membranes moist, TM's normal bilaterally, normal external ear exam Neck exam: Present: normal inspection, full ROM Respiratory exam: Present: normal lung sounds bilaterally. Absent: respiratory distress, wheezes Cardiovascular Exam: Present: regular rate, normal rhythm, normal heart sounds GI/Abdominal exam: Present: soft, tenderness (Mild diffuse). Absent: distended Extremities exam: Present: normal inspection, full ROM Back exam: Present: normal inspection, full ROM Neurological exam: Present: alert, oriented X3 Psychiatric exam: Present: normal affect, normal mood Skin exam: Present: warm, dry, intact, normal color Course Vital Signs 11/06/19 11/06/19 14:44 17:40 Temperature 98.7 F 98.3 F Pulse Rate 101 H 82 Respiratory 18 18 Rate Blood Pressure 130/92 142/78 O2 Sat by Pulse 95 98 Oximetry Medical Decision Making - Medical Decision Making Patient is a 39-year-old female, morbidly obese, type II diabetic presenting to the emergency department with a chief complaint of high blood sugar. Initial blood glucose obtained was 269. Patient did have some nausea but no vomiting since yesterday. Patient was given 1 L of fluids and antiemetics. Reevaluation patient reports improvement in symptoms. UA shows +1 ketones, plus for glucose with no signs of a urinary tract infection. Acetone is negative. Patient states her diabetes is not well-controlled and she is only taken metformin. She typically lives around the 2-300 glucose range. Potassium is within normal tavera its On reevaluation patient states she is comfortable going home. Advised the patient to follow-up with her primary care regarding changes to her diabetic regimen. She was also advised to follow-up with her diabetic specialist. Return parameters were thoroughly discussed with patient was understanding and agreeable. Case discussed with physician. - Lab Data Result diagrams: 11/06/19 15:50 11/06/19 15:50 Lab Results 11/06/19 11/06/19 11/06/19 Range/Units 14:49 15:22 15:22 WBC (3.8-10.6) k/uL RBC (3.80-5.40) m/uL Hgb (11.4-16.0) gm/dL Hct (34.0-46.0) % MCV (80.0-100.0) fL MCH (25.0-35.0) pg MCHC (31.0-37.0) g/dL RDW (11.5-15.5) % Plt Count (150-450) k/uL Neutrophils % % Lymphocytes % % Monocytes % % Eosinophils % % Basophils % % Neutrophils # (1.3-7.7) k/uL Lymphocytes # (1.0-4.8) k/uL Monocytes # (0-1.0) k/uL Eosinophils # (0-0.7) k/uL Basophils # (0-0.2) k/uL Sodium (137-145) mmol/L Potassium (3.5-5.1) mmol/L Chloride (98-107) mmol/L Carbon Dioxide (22-30) mmol/L Anion Gap mmol/L BUN (7-17) mg/dL Creatinine (0.52-1.04) mg/dL Est GFR (CKD-EPI)AfAm (>60 ml/min/1.73 sqM) Est GFR (CKD-EPI)NonAf (>60 ml/min/1.73 sqM) Glucose (74-99) mg/dL POC Glucose (mg/dL) 268 H (75-99) mg/dL POC Glu Splitting Machine Tender ID [place], [place] Calcium (8.4-10.2) mg/dL Total Bilirubin (0.2-1.3) mg/dL AST (14-36) U/L ALT (4-34) U/L Alkaline Phosphatase (38-126) U/L Total Protein (6.3-8.2) g/dL Albumin (3.5-5.0) g/dL Urine Color Yellow Urine Appearance Cloudy H (Clear) Urine pH 5.5 (5.0-8.0) Ur Specific [place] 1.025 (1.001-1.035) Urine Protein Trace H (Negative) Urine Glucose (UA) 4+ H (Negative) Urine Ketones 1+ H (Negative) Urine Blood Negative (Negative) Urine Nitrite Negative (Negative) Urine Bilirubin Negative (Negative) Urine Urobilinogen <2.0 (<2.0) mg/dL Ur Leukocyte Esterase Negative (Negative) Urine WBC 1 (0-5) /hpf Ur Squamous Epith Cells 10 H (0-4) /hpf Amorphous Sediment Rare H (None) /hpf Urine Bacteria Rare H (None) /hpf Urine Mucus Rare H (None) /hpf Urine HCG, Qual Not Detected (Not Detectd) Acetone, Qual (Negative) 11/06/19 11/06/19 11/06/19 Range/Units 15:50 15:50 17:13 WBC 8.7 (3.8-10.6) k/uL RBC 5.01 (3.80-5.40) m/uL Hgb 14.8 (11.4-16.0) gm/dL Hct 44.4 (34.0-46.0) % MCV 88.8 (80.0-100.0) fL MCH 29.6 (25.0-35.0) pg MCHC 33.3 (31.0-37.0) g/dL RDW 13.5 (11.5-15.5) % Plt Count 228 (150-450) k/uL Neutrophils % 56 % Lymphocytes % 32 % Monocytes % 4 % Eosinophils % 5 % Basophils % 1 % Neutrophils # 4.9 (1.3-7.7) k/uL Lymphocytes # 2.8 (1.0-4.8) k/uL Monocytes # 0.4 (0-1.0) k/uL Eosinophils # 0.4 (0-0.7) k/uL Basophils # 0.1 (0-0.2) k/uL Sodium 135 L (137-145) mmol/L Potassium 4.5 (3.5-5.1) mmol/L Chloride 101 (98-107) mmol/L Carbon Dioxide 25 (22-30) mmol/L Anion Gap 9 mmol/L BUN 14 (7-17) mg/dL Creatinine 0.57 (0.52-1.04) mg/dL Est GFR (CKD-EPI)AfAm >90 (>60 ml/min/1.73 sqM) Est GFR (CKD-EPI)NonAf >90 (>60 ml/min/1.73 sqM) Glucose 261 H (74-99) mg/dL POC Glucose (mg/dL) 229 H (75-99) mg/dL POC Glu Splitting Machine Tender ID Fariha Correa Calcium 10.0 (8.4-10.2) mg/dL Total Bilirubin 0.9 (0.2-1.3) mg/dL AST 51 H (14-36) U/L ALT 65 H (4-34) U/L Alkaline Phosphatase 135 H (38-126) U/L Total Protein 7.7 (6.3-8.2) g/dL Albumin 4.4 (3.5-5.0) g/dL Urine Color Urine Appearance (Clear) Urine pH (5.0-8.0) Ur Specific [place] (1.001-1.035) Urine Protein (Negative) Urine Glucose (UA) (Negative) Urine Ketones (Negative) Urine Blood (Negative) Urine Nitrite (Negative) Urine Bilirubin (Negative) Urine Urobilinogen (<2.0) mg/dL Ur Leukocyte Esterase (Negative) Urine WBC (0-5) /hpf Ur Squamous Epith Cells (0-4) /hpf Amorphous Sediment (None) /hpf Urine Bacteria (None) /hpf Urine Mucus (None) /hpf Urine HCG, Qual (Not Detectd) Acetone, Qual Negative (Negative) Disposition Clinical Impression: Hyperglycemia, Nausea Disposition: HOME SELF-CARE Condition: Stable Instructions (If sedation given, give patient instructions): Type 2 Diabetes in Adults: New Diagnosis (DC) Additional Instructions: Follow-up with your primary care doctor and a diabetic specialist. Please return to emergency department if symptoms worsen. Is patient prescribed a controlled substance at d/c from ED?: No Referrals: Ghassan Dacosta MD [Primary Care Provider] - 1-2 days Time of Disposition: 16:32
[2019-11-06 15:34] LABS: Amorphous Sediment,Urine Rare /hpf; Appearance,Urine Cloudy (Clear); Bacteria,Urine Rare /hpf; Bilirubin,Urine Negative (Negative); Blood,Urine Negative (Negative); Color,Urine Yellow; Glucose,Urine (UA) 4+ (Negative); Ketones,Urine 1+ (Negative); Leukocyte Esterase,Urine Negative (Negative); Mucus,Urine Rare /hpf; Nitrite,Urine Negative (Negative); PH, Urine 5.5 (5.0-8.0); Protein,Urine Trace (Negative); Specific Gravity,Urine 1.025 (1.001-1.035); Squamous Epithelial Cell,Urine 10 /hpf (0-4); Urobilinogen,Urine <2.0 mg/dL (<2.0); WBC,Urine 1 /hpf (0-5)
[2019-11-06 16:03] LABS: Basophils # (A) 0.1 k/uL (0-0.2); Basophils % (A) 1 %; Eosinophils # (A) 0.4 k/uL (0-0.7); Eosinophils % (A) 5 %; HCT 44.4 % (34.0-46.0); HGB 14.8 gm/dL (11.4-16.0); Lymphocytes # (A) 2.8 k/uL (1.0-4.8); Lymphocytes % (A) 32 %; MCH 29.6 pg (25.0-35.0); MCHC 33.3 g/dL (31.0-37.0); MCV 88.8 fL (80.0-100.0); Monocytes # (A) 0.4 k/uL (0-1.0); Monocytes % (A) 4 %; Neutrophils # (A) 4.9 k/uL (1.3-7.7); Neutrophils % (A) 56 %; Platelet Count 228 k/uL (150-450); RBC 5.01 m/uL (3.80-5.40); RDW 13.5 % (11.5-15.5); WBC 8.7 k/uL (3.8-10.6)
[2019-11-06 16:11] LABS: ALT 65 U/L (4-34); AST 51 U/L (14-36); African American GFR (CKD) >90 (>60 ml/min/1.73 sqM); Albumin 4.4 g/dL (3.5-5.0); Alkaline Phosphatase 135 U/L (38-126); Anion Gap 9 mmol/L; Blood Urea Nitrogen 14 mg/dL (7-17); Carbon Dioxide 25 mmol/L (22-30); Chloride 101 mmol/L (98-107); Glucose 261 mg/dL (74-99); Non-African American GFR(CKD) >90 (>60 ml/min/1.73 sqM); Potassium 4.5 mmol/L (3.5-5.1); Sodium 135 mmol/L (137-145); Total Bilirubin 0.9 mg/dL (0.2-1.3); Total Protein 7.7 g/dL (6.3-8.2)
[2019-11-06 17:15] LABS: Glucose,Whole Blood 229 mg/dL (75-99)
[2019-11-06 17:41] VITALS: BP 142/78; PULSE 82; TEMP 98.3
== END 2019-11-06 17:41 | disposition home or self-care (01) ==
LOC: EC 14:39
DX: E11.65 Type 2 diabetes mellitus with hyperglycemia (principal); R11.0 Nausea; R35.8 Other polyuria; E78.5 Hyperlipidemia, unspecified; F41.9 Anxiety disorder, unspecified; F31.9 Bipolar disorder, unspecified; E66.01 Morbid (severe) obesity due to excess calories; Z68.43 Body mass index [BMI] 50.0-59.9, adult; Z79.899 Other long term (current) drug therapy
CPT/HCPCS: 36415; 80053; 82009; 85025; 81001; 81025; 99285; 96374; 96361; J2405

== ENCOUNTER → 2019-11-28 | Outpatient (CLI) | payer OTHER ==
[2019-11-28 21:32] LABS: African American GFR (CKD) 107.6 (60.0-200.0); BUN/Creat Ratio 11.25 Ratio (12.00-20.00); Calcium 9.5 mg/dL (8.7-10.3); Carbon Dioxide 28.3 mmol/L (21.6-31.8); Chloride 103 mmol/L (96-109); Glucose 212 mg/dL (70-110); Non-African American GFR(CKD) 92.9 (60.0-200.0); Potassium 4.3 mmol/L (3.5-5.5); Sodium 140 mmol/L (135-145)
[2019-11-28 23:33] LABS: Hemoglobin A1C 9.7 % (4.0-6.0)
[2019-11-29 14:52] LABS: HCG,Quantitative Serum <2.0 mIU/mL
== END | disposition home or self-care (01) ==
LOC: LABWHC1 12:26
PROVIDERS: ATTEND Physician Assistant
DX: E11.9 Type 2 diabetes mellitus without complications (principal)
CPT/HCPCS: 36415; 80048; 83036; 84702

== ENCOUNTER → 2019-12-28 | Outpatient (CLI) | payer OTHER ==
[2019-12-28 14:24] LABS: HCT 39.8 % (34.0-46.0); MCH 29.1 pg (25.0-35.0); MCHC 32.7 g/dL (31.0-37.0); MCV 88.9 fL (80.0-100.0); Mean Platelet Volume 7.5; Platelet Count 272 k/uL (150-450); RBC 4.47 m/uL (3.80-5.40); WBC 9.9 k/uL (3.8-10.6)
[2019-12-28 18:34] LABS: ALT 51 U/L (8-44); AST 42 U/L (13-35); African American GFR (CKD) 126.5 (60.0-200.0); Albumin/Globulin Ratio 1.54 (1.60-3.17); Alkaline Phosphatase 104 U/L (41-126); BUN/Creat Ratio 18.57 Ratio (12.00-20.00); Calcium 9.1 mg/dL (8.7-10.3); Carbon Dioxide 27.6 mmol/L (21.6-31.8); Chloride 106 mmol/L (96-109); Globulin 2.6 g/dL (1.6-3.3); Glucose 119 mg/dL (70-110); Non-African American GFR(CKD) 109.1 (60.0-200.0); Potassium 3.9 mmol/L (3.5-5.5); Sodium 141 mmol/L (135-145); Total Bilirubin 0.8 mg/dL (0.2-1.2); Total Protein 6.6 g/dL (6.2-8.2)
[2019-12-28 18:42] LABS: Follicle Stimulating Hormone 4.5 mIU/mL; Luteinizing Hormone 5.8 mIU/mL
[2019-12-28 18:43] LABS: Estradiol 158.4 pg/mL
[2019-12-28 18:56] LABS: HCG,Quantitative Serum <2.0 mIU/mL
[2019-12-28 20:14] LABS: Hemoglobin A1C 8.8 % (4.0-6.0)
== END | disposition home or self-care (01) ==
LOC: LABWHC1 12:32
PROVIDERS: ATTEND Internal Medicine
DX: E11.9 Type 2 diabetes mellitus without complications (principal); N91.2 Amenorrhea, unspecified; I10 Essential (primary) hypertension; E66.01 Morbid (severe) obesity due to excess calories
CPT/HCPCS: 36415; 80053; 82670; 83001; 83002; 83036; 84439; 84443; 84481; 84702; 85027

== ENCOUNTER → 2020-01-09 | Outpatient (CLI) | payer OTHER ==
[2020-01-09 20:41] LABS: Luteinizing Hormone 2.5 mIU/mL; Prolactin 4.7 ng/mL (2.8-29.2)
[2020-01-09 20:42] LABS: Follicle Stimulating Hormone 3.8 mIU/mL
[2020-01-09 20:45] LABS: DHEA Sulfate 142.1 ug/dL (26.0-430.0)
[2020-01-09 20:47] LABS: HCG,Quantitative Serum <2.0 mIU/mL; Progesterone 0.3 ng/mL
[2020-01-09 22:46] LABS: Estradiol 35.4 pg/mL
== END | disposition home or self-care (01) ==
LOC: LABWHC1 13:25
PROVIDERS: ATTEND Obstetrics & Gynecology
DX: N92.6 Irregular menstruation, unspecified (principal)
CPT/HCPCS: 36415; 82627; 82670; 83001; 83002; 84144; 84146; 84439; 84443; 84481; 84702

== ENCOUNTER 2022-06-28 22:06 | Inpatient (IN) | payer MEDICAID, OTHER ==
--- NOTE | 2022-06-28 22:59 | ED ---
General Adult HPI - General Chief complaint: Psychiatric Symptoms Stated complaint: Mental Health Time Seen by Provider: 06/28/22 22:22 Source: patient, RN notes reviewed Mode of arrival: ambulatory Limitations: no limitations - History of Present Illness Initial comments: 42-year-old female presents to the emergency department requesting mental health evaluation. Patient states she is overwhelmed by her current circumstances and is having concerning thoughts of causing harm to the men that have fathered her children. States she does not have custody of her children. Reports no family support. States she is having marital difficulties as well. Reports history of cutting. Had a psychiatric hospitalization in January of 2022. States she has not done anything to harm herself or anyone else. Denies any medical complaints at this time. - Related Data Home Medications Medication Instructions Recorded Confirmed Citalopram Hydrobromide [CeleXA] 40 mg PO QAM 01/31/17 12/10/18 busPIRone HCL [Buspar] 30 mg PO TID 04/20/18 12/10/18 traZODone HCL 100 mg PO HS 04/20/18 12/10/18 Atorvastatin [Lipitor] 10 mg PO HS 12/07/18 12/10/18 Multivitamin [Multivitamins Adult 1 each PO DAILY 12/07/18 12/10/18 Gummies] Previous Rx's Medication Instructions Recorded Docusate [Colace] 100 mg PO BID #20 capsule 12/10/18 HYDROcodone/APAP 5-325MG [[place] 1 tab PO Q6HR PRN #10 tab 12/10/18 5-325] Ondansetron Odt [Zofran Odt] 4 mg PO Q8HR PRN #12 tab 09/05/19 Allergies Allergy/AdvReac Type Severity Reaction Status Date / Time No Known Allergies Allergy Verified 06/28/22 22:14 Review of Systems ROS Statement: Those systems with pertinent positive or pertinent negative responses have been documented in the HPI. ROS Other: All systems not noted in ROS Statement are negative. 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 Past Anesthesia/Blood Transfusion Reactions: No Reported Reaction Past Psychological History: Anxiety, Bipolar, Depression Smoking Status: Never smoker Past Alcohol Use History: None Reported Past Drug Use History: None Reported - Past Family History Father History Unknown: Yes Family Medical History: Diabetes Mellitus General Exam Limitations: no limitations General appearance: alert, in no apparent distress ENT exam: Present: normal exam, normal oropharynx Respiratory exam: Present: normal lung sounds bilaterally. Absent: respiratory distress, wheezes, rales, rhonchi, stridor Cardiovascular Exam: Present: regular rate, normal rhythm, normal heart sounds. Absent: systolic murmur, diastolic murmur, rubs, gallop, clicks GI/Abdominal exam: Present: soft, normal bowel sounds. Absent: distended, tenderness, guarding, rebound, rigid Neurological exam: Present: alert, oriented X3, normal gait Psychiatric exam: Present: normal affect, normal mood, homicidal ideation (reports thoughts of causing harm to the fathers of her children) Skin exam: Present: warm, dry, intact, normal color. Absent: rash Course Vital Signs 06/28/22 22:14 Temperature 97.7 F Pulse Rate 104 H Respiratory 18 Rate Blood Pressure 118/71 O2 Sat by Pulse 95 Oximetry - Reevaluation(s) Reevaluation #1: 06/29/22 01:47 Spoke with EPS. Patient will be admitted to inpatient psychiatric care for further evaluation and treatment. Medical Decision Making - Medical Decision Making 42-year-old female with a past medical history of diabetes, anxiety, and depression presents to the emergency department for mental health evaluation. Upon exam, patient is well-appearing and in no acute distress. Physical exam findings are unremarkable. Patient is pleasant and engaged. Expresses thoughts of causing harm to others. Patient was cooperative with ED plan of care. BAT negative. UDS negative. Patient spoke with EPS; they recommend inpatient psychiatric treatment. Patient is agreeable with this plan of care. Attending: Ebony Was pt. sent in by a medical professional or institution? @ -No Did you speak to anyone other than the patient for history? @ -No Did you review nursing and triage notes? @ -Yes, agree Were old charts reviewed? @ -No Differential Diagnosis? @ -Anxiety, depression, homicidal ideation, this is not meant to be an exhaustive list EKG interpreted by me (3pts min.)? @ -Not applicable X-rays interpreted by me (1pt min.)? @ -Not applicable CT interpreted by me (1pt min.)? @ -Not applicable U/S interpreted by me (1pt. min.)? @ -Not applicable What testing was considered but not performed? (CT, X-rays, U/S, labs)? Why? @ -None What meds were considered but not given? Why? @ -None Did you discuss the management of the patient with other professionals? @ -EPS Did you reconcile home meds? @ -No Was smoking cessation discussed for >3mins.? @ -No Was critical care preformed (if so, how long)? @ -No Were there social determinants of health that impacted care today? How? (Homelessness, low income, unemployed, alcoholism, drug addiction, transportation, low edu. Level, literacy, decrease access to med. care, half-way, rehab)? @ -Mental illness Was there de-escalation of care discussed even if they declined? (Discuss DNR or withdrawal of care, Hospice)? @ -No What co-morbidities impacted this encounter? (DM, HTN, Smoking, COPD, CAD, Cancer, CVA, Hep., AIDS, mental health diagnosis, sleep apnea, morbid obesity)? @No Was patient admitted / discharged? @ -Admitted Undiagnosed new problem with uncertain prognosis? @ -None Drug Therapy requiring intensive monitoring for toxicity (Heparin, Nitro, Insulin, Cardizem)? @ -None Were any procedures done? @ -None Diagnosis/symptom? @ -Mental Illness Acute, or Chronic, or Acute on Chronic? @ -Acute on Chronic Uncomplicated (without systemic symptoms) or Complicated (systemic symptoms)? @ -Uncomplicated Side effects of treatment? @ -None Exacerbation, Progression, or Severe Exacerbation] @ -Exacerbation Poses a threat to life or bodily function? @ -No - Lab Data Lab Results 06/28/22 06/28/22 06/29/22 Range/Units 23:00 23:00 01:51 Urine HCG, Qual Not Detected (Not Detectd) Urine Opiates Screen Not Detected (NotDetected) Ur Oxycodone Screen Not Detected (NotDetected) Urine Methadone Screen Not Detected (NotDetected) Ur Propoxyphene Screen Not Detected (NotDetected) Ur Barbiturates Screen Not Detected (NotDetected) U Tricyclic Antidepress Not Detected (NotDetected) Ur Phencyclidine Scrn Not Detected (NotDetected) Ur Amphetamines Screen Not Detected (NotDetected) U Methamphetamines Scrn Not Detected (NotDetected) U Benzodiazepines Scrn Not Detected (NotDetected) Urine Cocaine Screen Not Detected (NotDetected) U Marijuana (THC) Screen Not Detected (NotDetected) Coronavirus (PCR) Not Detected (Not Detectd) Disposition Clinical Impression: Mental health problem Disposition: TRANSFER TO PSYCH HOSP/UNIT Condition: Serious Is patient prescribed a controlled substance at d/c from ED?: No Referrals: Ghassan Dacosta MD [REFERRING] - 1-2 days Decision Date: 06/29/22 Decision Time: 01:47
[2022-06-28 23:46] LABS: Amphetamine Screen,Urine Not Detected (NotDetected); Barbiturate Screen,Urine Not Detected (NotDetected); Benzodiazepines Screen,Urine Not Detected (NotDetected); Cocaine Screen,Urine Not Detected (NotDetected); Methadone Screen, Urine Not Detected (NotDetected); Opiate Screen,Urine Not Detected (NotDetected); Oxycodone Screen, Urine Not Detected (NotDetected); Phencyclidine Screen,Urine Not Detected (NotDetected); Tricyclic Antidepressant,Urine Not Detected (NotDetected); Urn Cannabinoid Scrn Not Detected (NotDetected)
[2022-06-29] MEDS ORDERED: ACETAMINOPHEN TAB 325 MG TAB PO PRN (02:34)
[2022-06-29] MEDS ORDERED: MAGNESIUM HYDROXIDE 2,400 MG/10 ML CUP PO PRN (02:34)
[2022-06-29] MEDS ORDERED: MAG HYDROX/AL HYDROX/SIMETH 30 ML CUP PO PRN (02:34)
[2022-06-29] MEDS ORDERED: LORazepam 1 MG TAB PO PRN (02:34)
[2022-06-29] MEDS ORDERED: HALOPERIDOL LACTATE 5 MG/ML 1 ML VIAL IM PRN (02:34)
[2022-06-29] MEDS ORDERED: LORazepam 2 MG/ML INJ IM PRN (02:38)
[2022-06-29] MEDS ORDERED: haloperidoL 5 MG TAB PO PRN (02:38)
[2022-06-29 04:29] LABS: Appearance,Urine Clear (Clear); Bilirubin,Urine Negative (Negative); Blood,Urine Negative (Negative); Color,Urine Light Yellow; Glucose,Urine (UA) 4+ (Negative); Ketones,Urine Negative (Negative); Leukocyte Esterase,Urine Negative (Negative); Nitrite,Urine Negative (Negative); PH, Urine 5.5 (5.0-8.0); Protein,Urine Negative (Negative); Specific Gravity,Urine 1.038 (1.001-1.035); Urobilinogen,Urine <2.0 mg/dL (<2.0)
[2022-06-29 07:11] LABS: Basophils # (A) 0.1 k/uL (0-0.2); Basophils % (A) 1 %; Eosinophils # (A) 0.4 k/uL (0-0.7); Eosinophils % (A) 4 %; HCT 40.6 % (34.0-46.0); HGB 14.1 gm/dL (11.4-16.0); Lymphocytes # (A) 2.7 k/uL (1.0-4.8); Lymphocytes % (A) 31 %; MCH 31.1 pg (25.0-35.0); MCHC 34.7 g/dL (31.0-37.0); MCV 89.6 fL (80.0-100.0); Mean Platelet Volume 7.7; Monocytes # (A) 0.4 k/uL (0-1.0); Monocytes % (A) 5 %; Neutrophils % (A) 57 %; Platelet Count 233 k/uL (150-450); RBC 4.53 m/uL (3.80-5.40); RDW 13.3 % (11.5-15.5); WBC 8.6 k/uL (3.8-10.6)
[2022-06-29 07:23] LABS: ALT 25 U/L (4-34); AST 23 U/L (14-36); African American GFR (CKD) >90 (>60 ml/min/1.73 sqM); Albumin 3.6 g/dL (3.5-5.0); Alkaline Phosphatase 75 U/L (38-126); Anion Gap 6 mmol/L; Bilirubin, Delta 0.2 mg/dL (0.0-0.2); Bilirubin,Unconjugated 0.3 mg/dL (0.0-1.1); Blood Urea Nitrogen 14 mg/dL (7-17); Calcium 8.4 mg/dL (8.4-10.2); Carbon Dioxide 28 mmol/L (22-30); Chloride 105 mmol/L (98-107); Glucose 137 mg/dL (74-99); Non-African American GFR(CKD) >90 (>60 ml/min/1.73 sqM); Sodium 139 mmol/L (137-145); Total Bilirubin 0.5 mg/dL (0.2-1.3); Total Protein 6.6 g/dL (6.3-8.2)
[2022-06-29 07:43] LABS: Glucose,Whole Blood 135 mg/dL (70-110)
[2022-06-29] MEDS: CITALOPRAM HYDROBROMIDE 20 MG TAB PO SCH (08:46)
[2022-06-29] MEDS: metFORMIN 500 MG TAB PO SCH ×2 (08:46→20:38)
[2022-06-29] MEDS: DAPAGLIFLOZIN PROPANEDIOL 10 MG TABLET PO SCH (08:47)
[2022-06-29 11:31] LABS: Chol/HDL Ratio 3.19 Ratio; LDL Cholesterol,Calculated 106.1 mg/dL (0.0-131.0)
[2022-06-29 12:40] LABS: Glucose,Whole Blood 99 mg/dL (70-110)
--- NOTE | 2022-06-29 14:43 | P.CONS ---
History of Present Illness - Reason for Consult Consult date: 06/29/22 Medical management of hypertension, diabetes and hyperlipidemia - Chief Complaint Mental health evaluation - History of Present Illness 42-year-old female, history of hypertension, hyperlipidemia, diabetes mellitus and morbid obesity presents to the emergency department requesting mental health evaluation. Patient states she is overwhelmed by her current circumstances and is having concerning thoughts of causing harm to the men that have fathered her children. States she does not have custody of her children. Reports no family support. States she is having marital difficulties as well. Reports history of cutting. Had a psychiatric hospitalization in January of 2022. States she has not done anything to harm herself or anyone else. Denies any medical complaints at this time. Patient does admit to anxiety, depression and homicidal ideation per ER records; patient denied at the time of my evaluation Blood work completed in ED reveals WBC of 8.6, hemoglobin 14.1 and platelet count of 233, sodium 139, potassium 4.0, BUN/creatinine 14/0.6; blood glucose of 137 with HbA1c of 7.2; total cholesterol is elevated at 217 with LDL of 1.6 and HDL of 68 Review of Systems REVIEW OF SYSTEMS: CONSTITUTIONAL: No fever, no malaise, no fatigue. HEENT: No recent visual problems or hearing problems. Denied any sore throat. CARDIOVASCULAR: No chest pain, orthopnea, PND, no palpitations, no syncope. PULMONARY: No shortness of breath, no cough, no hemoptysis. GASTROINTESTINAL: No diarrhea, no nausea, no vomiting, no abdominal pain. NEUROLOGICAL: No headaches, no weakness, no numbness. HEMATOLOGICAL: Denies any bleeding or petechiae. GENITOURINARY: Denies any burning micturition, frequency, or urgency. MUSCULOSKELETAL/RHEUMATOLOGICAL: Denies any joint pain, swelling, or any muscle pain. ENDOCRINE: Denies any polyuria or polydipsia. The rest of the 14-point review of systems is negative. 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 Past Anesthesia/Blood Transfusion Reactions: No Reported Reaction Past Psychological History: Anxiety, Bipolar, Depression Smoking Status: Never smoker Past Alcohol Use History: None Reported Past Drug Use History: None Reported - Past Family History Father History Unknown: Yes Family Medical History: Diabetes Mellitus Medications and Allergies Home Medications Medication Instructions Recorded Confirmed Type Citalopram Hydrobromide [CeleXA] 40 mg PO QAM 01/31/17 12/10/18 History busPIRone HCL [Buspar] 30 mg PO TID 04/20/18 12/10/18 History traZODone HCL 50 mg PO HS 04/20/18 12/10/18 History Atorvastatin [Lipitor] 10 mg PO HS 12/07/18 12/10/18 History Multivitamin [Multivitamins Adult 1 each PO DAILY 12/07/18 12/10/18 History Gummies] Docusate [Colace] 100 mg PO BID #20 capsule 12/10/18 Rx HYDROcodone/APAP 5-325MG [[place] 1 tab PO Q6HR PRN #10 tab 12/10/18 Rx 5-325] Ondansetron Odt [Zofran Odt] 4 mg PO Q8HR PRN #12 tab 09/05/19 Rx Dulaglutide [Trulicity] 0.75 mg SQ Q7DAYS 06/29/22 06/29/22 History Empagliflozin [Jardiance] 25 mg PO DAILY 06/29/22 06/29/22 History metFORMIN HCL 1,000 mg PO BID 06/29/22 06/29/22 History Allergies Allergy/AdvReac Type Severity Reaction Status Date / Time No Known Allergies Allergy Verified 06/28/22 22:14 Physical Exam Vitals: Vital Signs Temp Pulse Pulse Resp BP BP Pulse Ox 06/29/22 03:53 96.9 F L 89 20 116/68 97 06/28/22 22:14 97.7 F 104 H 18 118/71 95 Intake and Output 06/28/22 06/29/22 06/29/22 22:59 06:59 14:59 Other: Weight 136.985 kg 138.4 kg 138.4 kg PHYSICAL EXAMINATION: GENERAL: The patient is alert and oriented x3, not in any acute distress. Morbidly obese. HEENT: Pupils are round and equally reacting to light. EOMI. No scleral icterus. No conjunctival pallor. Normocephalic, atraumatic. No pharyngeal erythema. No thyromegaly. CARDIOVASCULAR: S1 and S2 present. No murmurs, rubs, or gallops. PULMONARY: Chest is clear to auscultation, no wheezing or crackles. ABDOMEN: Soft, nontender, nondistended, normoactive bowel sounds. No palpable organomegaly. MUSCULOSKELETAL: No joint swelling or deformity. EXTREMITIES: No cyanosis, clubbing, or pedal edema. NEUROLOGICAL: Gross neurological examination did not reveal any focal deficits. SKIN: No rashes. Results CBC & Chem 7: 06/29/22 06:53 06/29/22 06:53 Labs: Abnormal Lab Results - Last 24 Hours (Table) 06/28/22 06/29/22 06/29/22 Range/Units 23:00 06:53 07:40 Glucose 137 H (74-99) mg/dL POC Glucose (mg/dL) 135 H (70-110) mg/dL Ur Specific [place] 1.038 H (1.001-1.035) Urine Glucose (UA) 4+ H (Negative) Assessment and Plan Assessment: 1. Mental health problem; depression - Your management 2. Diabetes mellitus; patient takes Trulicity 0.75 mg weekly; metformin thousand milligrams by mouth twice a day; Farsi to 10 mg daily -- we will monitor Accu-Cheks before meals and at bedtime with insulin sliding scale 3. Hyperlipidemia; Lipitor 10 mg by mouth daily at bedtime 4. Hypertension; patient not able to remember antihypertensive medication; no antihypertensive medication on patient's list of home medications; blood pressure is currently stable without any treatment; we will monitor closely and make recommendations accordingly 5. Hyperlipidemia; continue with home dose of Lipitor 6. Constipation; Colace 100 mg twice a day and milk of magnesia daily when necessary DVT prophylaxis; early ambulation CODE STATUS; full code
[2022-06-29 17:31] LABS: Glucose,Whole Blood 145 mg/dL (70-110)
[2022-06-29] MEDS ORDERED: hydrOXYzine HCL 25 MG TAB PO PRN (18:00)
[2022-06-29] MEDS: ARIPiprazole 5 MG TAB PO SCH (18:28)
--- NOTE | 2022-06-29 18:28 | P.HP ---
Psychiatric H&P - . H&P Date: 06/29/22 History & Physical: IDENTIFYING DATA: Patient is a 42 year old female with history of borderline personality disorder and PTSD who was admitted due to homicidal ideations. HPI: Per ER notes, "Patient states she is overwhelmed by her current circu mstances and is having concerning thoughts of causing harm to the men that have fathered her children. States she does not have custody of her children. Reports no family support. States she is having marital difficulties as well. Reports history of cutting. Had a psychiatric hospitalization in January of 2022. States she has not done anything to harm herself or anyone else. Denies any medical com plaints at this time." Per EPS assessment, "Patient states her friend called the ambulance to have her brought in. Patient is alert and oriented x3. BAT 0. Patient denies Suicidal thoughts. Patient admits to having homicidal ideation towards her and 2 other fathers of her children. Patient states she is angry with them and the other made her mad over the internet. Patient admits to being homicidal with a plan to beat them with a baseball bat. Patient states she has been crying alot. Patient also admits to hearing voices telling her "Go do it." Patient states she is trying to fill out papers to get a divorce process started. She also states she lost custody of her kids 5 years ago. Patient has a history of an overdose and cutting about 15 years ago. Patient states she does not do any drugs, doesn't smoke and doesn't drink. Patient states she went to [facility] last week and sees them weekly. This radio news writer went on [employer] to verify and cannot find any documentation of this. Patient states she feels her meds might not be working enough and wants to get help." On my assessment, patient denies suicidal ideations but continues to endorse homicidal thoughts of hurting the three fathers of her four children, and states the thought is still in the back of her head to hurt people who have hurt her in the past. She reports her homicidal ideations were to beat these three men with a baseball bat. She endorses depressed mood, missing her kids and parents. She reports fair sleep and irregular appetite. She endorses voices in her head telling her to go "do it". She feels people "piss her off" to the point she gets like this. She denies visual hallucinations. Patient denies any flight of ideas racing thoughts and increased in goal directed behavior. Patient denies drug, alcohol or tobacco use. Her current home medications are Celexa 40 mg daily, Hydroxyzine 25 mg TID PRN, and Trazodone 50 mg QHS. She reports she was previously on Abilify in the past and it helped. PAST PSYCHIATRIC HISTORY: Patient states that she has been diagnosed with Borderline personality disorder, PTSD, Manic depressive. Pastpsychiatric medications: Lexapro, Wellbutrin, Abilify, Buspar, Trazodone Previous psychiatric hospitalizations: 2002, 2007 ([facility] [place]), 2021 ([place]) Past psychiatric outpatient follow-up: [facility] History of suicide attempts in the past: cutting, overdose PMH: Past Medical History: Diabetes Mellitus, Hyperlipidemia, Hypertension, GERD, neuropathy Additional Past Medical History / Comment(s): Gestational diabetes with first , History of Any Multi-Drug Resistant Organisms: None Reported Past Surgical History: Section Additional Past Surgical History / Comment(s): D&C, tumor removed to RLQ of abdomen, benign. Past Anesthesia/Blood Transfusion Reactions: No Reported Reaction Past Psychological History: Anxiety, Bipolar, Depression Smoking Status: Never smoker Past Alcohol Use History: None Reported Past Drug Use History: None Reported ALLERGIES: as per EMR CHEMICAL DEPENDENCY HISTORY: as per HPI FAMILY PSYCHIATRIC/SUBSTANCE USE HISTORY: Mother and sisters with depression; father with schizophrenia SOCIAL HISTORY: Patient was born and raised in [facility]. Recently returned to [place] in February 2022. Living with a friend until she gets her own place. Gets SSI for learning disability Her children are in [place] living with their foster parents MENTAL STATUS EXAM: General Appearance: Patient appears to be stated age, morbidly obese, fair hygiene and grooming. Behavior: Patient is seated without any agitated behavior. Speech: Patient's speech is fluent and non-pressured. Mood/Affect: Patient reports their mood is depressed, affect is congruent and constricted. Suicidality/Homicidality: Patient endorses having any homicidal ideation with plan. Denies any suicidal ideation, intent or plan. Perceptions: Patient denies any visual hallucinations and endorses auditory hallucinations. Though content/process: There is no evidence of any delusional thought content and thought process is linear and goal-directed. Memory and concentration: AOX3, grossly intact for the purposes of this session. Can spell "WORLD" backwards Judgment and insight: Poor STRENGTHS/WEAKNESSES: strength is that patient is resilient. Weakness is that patient has poor judgment and is impulsive INTELLECT: Average IMPRESSIONS: Unspecified mood disorder, Rule out bipolar II disorder Borderline personality disorder PTSD by history PLAN: -Patient is admitted under voluntary status to MHU for stabilization of psychiatric symptoms and safety. Patient has signed adult voluntary form and is placed in patient's chart. -Medications: Will start patient on Abilify 5 mg daily for mood stabilization/psychosis. Continue Celexa 40 mg daily for depression. Continue Trazodone 50 mg QHS for sleep. Increase Hydroxyzine to 50 mg TID PRN for anxiety. -Ativan and Haldol PRN for agitation/aggression -Patient was informed of the risks, benefits and side effects of the medication and patient verbally consented to taking the medications. Patient signed med consent form and was placed in chart. -Internal Medicine consult to perform medical evaluation and physical. -NRT - not needed, nonsmoker -SW on board for discharge planning. Encourage patient to participate in groups to work on coping skills. Allergies Allergy/AdvReac Type Severity Reaction Status Date / Time No Known Allergies Allergy Verified 06/28/22 22:14 Vital Signs Temp 96.9 F L 06/29/22 03:53 Pulse 89 06/29/22 03:53 Resp 20 06/29/22 03:53 BP 116/68 06/29/22 03:53 Pulse Ox 97 06/29/22 03:53 FiO2 Intake & Output 06/28/22 06/29/22 06/29/22 18:59 06:59 18:59 Weight 138.4 kg 138.4 kg Laboratory Last Values WBC 8.6 k/uL (3.8-10.6) 06/29/22 06:53 RBC 4.53 m/uL (3.80-5.40) 06/29/22 06:53 Hgb 14.1 gm/dL (11.4-16.0) 06/29/22 06:53 Hct 40.6 % (34.0-46.0) 06/29/22 06:53 MCV 89.6 fL (80.0-100.0) 06/29/22 06:53 MCH 31.1 pg (25.0-35.0) 06/29/22 06:53 MCHC 34.7 g/dL (31.0-37.0) 06/29/22 06:53 RDW 13.3 % (11.5-15.5) 06/29/22 06:53 Plt Count 233 k/uL (150-450) 06/29/22 06:53 MPV 7.7 06/29/22 06:53 Neutrophils % 57 % 06/29/22 06:53 Lymphocytes % 31 % 06/29/22 06:53 Monocytes % 5 % 06/29/22 06:53 Eosinophils % 4 % 06/29/22 06:53 Basophils % 1 % 06/29/22 06:53 Neutrophils # 5.0 k/uL (1.3-7.7) 06/29/22 06:53 Lymphocytes # 2.7 k/uL (1.0-4.8) 06/29/22 06:53 Monocytes # 0.4 k/uL (0-1.0) 06/29/22 06:53 Eosinophils # 0.4 k/uL (0-0.7) 06/29/22 06:53 Basophils # 0.1 k/uL (0-0.2) 06/29/22 06:53 Sodium 139 mmol/L (137-145) 06/29/22 06:53 Potassium 4.0 mmol/L (3.5-5.1) 06/29/22 06:53 Chloride 105 mmol/L (98-107) 06/29/22 06:53 Carbon Dioxide 28 mmol/L (22-30) 06/29/22 06:53 Anion Gap 6 mmol/L 06/29/22 06:53 BUN 14 mg/dL (7-17) 06/29/22 06:53 Creatinine 0.71 mg/dL (0.52-1.04) 06/29/22 06:53 Est GFR (CKD-EPI)AfAm >90 (>60 ml/min/1.73 sqM) 06/29/22 06:53 Est GFR (CKD-EPI)NonAf >90 (>60 ml/min/1.73 sqM) 06/29/22 06:53 Glucose 137 mg/dL (74-99) H 06/29/22 06:53 POC Glucose (mg/dL) 99 mg/dL (70-110) 06/29/22 12:37 POC Glu Welfare Interviewer ID Diana Scott 06/29/22 12:[address] Glu mg/dL 160 06/29/22 06:53 Hemoglobin A1c 7.2 % (0.0-6.0) H 06/29/22 06:53 Calcium 8.4 mg/dL (8.4-10.2) 06/29/22 06:53 Total Bilirubin 0.5 mg/dL (0.2-1.3) 06/29/22 06:53 Conjugated Bilirubin 0.0 mg/dL (0.0-0.3) 06/29/22 06:53 Unconjugated Bilirubin 0.3 mg/dL (0.0-1.1) 06/29/22 06:53 Delta Bilirubin 0.2 mg/dL (0.0-0.2) 06/29/22 06:53 AST 23 U/L (14-36) 06/29/22 06:53 ALT 25 U/L (4-34) 06/29/22 06:53 Alkaline Phosphatase 75 U/L (38-126) 06/29/22 06:53 Total Protein 6.6 g/dL (6.3-8.2) 06/29/22 06:53 Albumin 3.6 g/dL (3.5-5.0) 06/29/22 06:53 Triglycerides 214.00 mg/dL (0.00-149.00) H 06/29/22 06:53 Cholesterol 217.00 mg/dL (0.00-200.00) H 06/29/22 06:53 LDL Cholesterol, Calc 106.1 mg/dL (0.0-131.0) 06/29/22 06:53 VLDL Cholesterol, Calc 42.80 mg/dL (5.00-40.00) H 06/29/22 06:53 HDL Cholesterol 68.10 mg/dL (40.00-60.00) H 06/29/22 06:53 Cholesterol/HDL Ratio 3.19 Ratio 06/29/22 06:53 TSH 1.250 mIU/L (0.465-4.680) 06/29/22 06:53 Urine Color Light Yellow 06/28/22 23:00 Urine Appearance Clear (Clear) 06/28/22 23:00 Urine pH 5.5 (5.0-8.0) 06/28/22 23:00 Ur Specific [place] 1.038 (1.001-1.035) H 06/28/22 23:00 Urine Protein Negative (Negative) 06/28/22 23:00 Urine Glucose (UA) 4+ (Negative) H 06/28/22 23:00 Urine Ketones Negative (Negative) 06/28/22 23:00 Urine Blood Negative (Negative) 06/28/22 23:00 Urine Nitrite Negative (Negative) 06/28/22 23: Urine Bilirubin Negative (Negative) 06/28/22 23: Urine Urobilinogen <2.0 mg/dL (<2.0) 06/28/22 23:00 Ur Leukocyte Esterase Negative (Negative) 06/28/22 23:00 Urine HCG, Qual Not Detected (Not Detectd) 06/28/22 23:00 Urine Opiates Screen Not Detected (NotDetected) 06/28/22 23:00 Ur Oxycodone Screen Not Detected (NotDetected) 06/28/22 23:00 Urine Methadone Screen Not Detected (NotDetected) 06/28/22 23:00 Ur Propoxyphene Screen Not Detected (NotDetected) 06/28/22 23:00 Ur Barbiturates Screen Not Detected (NotDetected) 06/28/22 23:00 U Tricyclic Antidepress Not Detected (NotDetected) 06/28/22 23:00 Ur Phencyclidine Scrn Not Detected (NotDetected) 06/28/22 23:00 Ur Amphetamines Screen Not Detected (NotDetected) 06/28/22 23:00 U Methamphetamines Scrn Not Detected (NotDetected) 06/28/22 23:00 U Benzodiazepines Scrn Not Detected (NotDetected) 06/28/22 23:00 Urine Cocaine Screen Not Detected (NotDetected) 06/28/22 23:00 U Marijuana (THC) Screen Not Detected (NotDetected) 06/28/22 23:00 Coronavirus (PCR) Not Detected (Not Detectd) 06/29/22 01:51 06/29/22 17:05 06/29/22 17:45 06/29/22 18:10 06/29/22 18:22
[2022-06-29 19:59] LABS: Glucose,Whole Blood 130 mg/dL (70-110)
[2022-06-29] MEDS: traZODone HCL 50 MG TAB PO SCH (20:38)
[2022-06-29] MEDS: DOCUSATE 100 MG CAP PO SCH (20:38)
[2022-06-29] MEDS: ATORVASTATIN 10 MG TAB PO SCH (20:38)
[2022-06-30 07:42] LABS: Glucose,Whole Blood 123 mg/dL (70-110)
[2022-06-30] MEDS: metFORMIN 500 MG TAB PO SCH ×2 (10:42→20:53)
[2022-06-30] MEDS: DOCUSATE 100 MG CAP PO SCH ×2 (10:42→20:54)
[2022-06-30] MEDS: DAPAGLIFLOZIN PROPANEDIOL 10 MG TABLET PO SCH (10:42)
[2022-06-30] MEDS: CITALOPRAM HYDROBROMIDE 20 MG TAB PO SCH (10:43)
[2022-06-30] MEDS: ARIPiprazole 5 MG TAB PO SCH (10:43)
[2022-06-30 12:46] LABS: Glucose,Whole Blood 99 mg/dL (70-110)
--- NOTE | 2022-06-30 14:38 | P.PN ---
Progress Note - Text Progress Note Date: 06/30/22 Interval History: Patient was seen today laying in her bed and was directable and agreeable to s peak with sba underwriter in the office. Patient cleared was just waking up from sleep. She states that she is doing "okay" today. She claims that she still having racing thoughts at times. She states that the homicidal ideations have been gradually improving. She claims that she is feeling "very off" before coming into the hospital. She states that she had a difficult time sleeping last night. She claims that she has only been going to some groups, has a fair and improving appetite. She continues to state that she has elevated levels of anxiety and depression. At this time patient denies any suicidal or homical ideations, intent or plan. Patient denies any auditory, visual hallucinations and denies any paranoia or delusions. Patient denies any side effects from the medications and has been compliant with meds. Mental Status Exam: General Appearance: Patient appears to be stated age, morbidly obese, fair hygiene and grooming. Behavior: Patient is seated without any agitated behavior. Attempts to cooperate. Speech: Patient's speech is fluent and non-pressured. [place]. Mood/Affect: Patient reports their mood is depressed and anxious, improving moderately, affect is congruent and constricted. Suicidality/Homicidality: Patient endorses having any homicidal ideation with plan. Denies any suicidal ideation, intent or plan. Perceptions: Patient denies any visual hallucinations and endorses auditory hallucinations. Though content/process: There is no evidence of any delusional thought content and thought process is linear and goal-directed. Focused on stressors Memory and concentration: AOX3, grossly intact for the purposes of this session Judgment and insight: Poor, improving mildly IMPRESSIONS: Unspecified mood disorder, Rule out bipolar disorder Borderline personality disorder PTSD Plan: -Patient continues to meet criteria for inpatient psychiatric admission for symptom stabilization and safety. Patient has not signed adult voluntary form and medication consent and was placed in patient's chart. -Medications: Increase Abilify 5 mg daily for mood stabilization/psychosis. Continue Celexa 40 mg daily for depression. Continue Trazodone 50 mg QHS for sleep. Hydroxyzine to 50 mg TID PRN for anxiety. -When necessary Ativan and Haldol for agitation/aggression. -NRT - not needed, nonsmoker -SW on board for discharge planning. Encouraged the patient to participate in milieu. Likely discharge in 1-2 days.
[2022-06-30] MEDS: PANTOPRAZOLE 40 MG TABLET PO SCH (16:19)
[2022-06-30] MEDS: GABAPENTIN 300 MG CAP PO SCH ×2 (16:19→20:54)
[2022-06-30] MEDS: MULTIVITAMINS, THERA 1 EACH TAB PO SCH (16:19)
[2022-06-30 17:48] LABS: Glucose,Whole Blood 132 mg/dL (70-110)
[2022-06-30] MEDS: ATORVASTATIN 10 MG TAB PO SCH (20:53)
[2022-06-30] MEDS: traZODone HCL 50 MG TAB PO SCH (20:53)
[2022-07-01 07:04] VITALS: TEMP 97.4
[2022-07-01 07:48] LABS: Glucose,Whole Blood 146 mg/dL (70-110)
[2022-07-01] MEDS: DOCUSATE 100 MG CAP PO SCH ×2 (08:57→20:43)
[2022-07-01] MEDS: CITALOPRAM HYDROBROMIDE 20 MG TAB PO SCH (08:57)
[2022-07-01] MEDS: metFORMIN 500 MG TAB PO SCH ×2 (08:58→20:32)
[2022-07-01] MEDS: PANTOPRAZOLE 40 MG TABLET PO SCH (08:58)
[2022-07-01] MEDS: GABAPENTIN 300 MG CAP PO SCH ×2 (08:59→20:33)
[2022-07-01] MEDS: DAPAGLIFLOZIN PROPANEDIOL 10 MG TABLET PO SCH (09:00)
[2022-07-01] MEDS ORDERED: ARIPiprazole 5 MG TAB PO SCH (09:00)
[2022-07-01] MEDS: MULTIVITAMINS, THERA 1 EACH TAB PO SCH (09:01)
--- NOTE | 2022-07-01 10:36 | P.PN ---
Progress Note - Text Progress Note Date: 07/01/22 Interval History: Patient was seen today sitting at the table coloring pictures and doing crossw ords. Patient was agreeable to speak to read in the office today. She appears to have improvement in her irritability and appears to be much more cooperative today. She claims that she is doing better and slept "like a baby" last night. She states that she is feeling more hopeful about her medications and wants to continue on with them. She feels that the Abilify has been helping her signific antly. We spoke about the advantages and drawbacks of the long-acting injection and patient was agreeable to take that today. Patient will also be taking her Trulicity today. She claims that she is trying to keep her herself occupied on the unit and sometimes intractable to people. She was fairly focused on discharge. She claims that her anxiety and mood have been improving. She has a fair and improving appetite. At this time patient denies any suicidal or homical ideations, intent or plan. Patient denies any auditory, visual hallucinations and denies any paranoia or delusions. Patient denies any side effects from the medications and has been compliant with meds. Mental Status Exam: General Appearance: Patient appears to be stated age, morbidly obese, fair hygiene and grooming. Behavior: Patient is seated without any agitated behavior. More cooperative today. Speech: Patient's speech is fluent and non-pressured. [place]. Mood/Affect: Patient reports their mood is improving mildly, affect is congruent Suicidality/Homicidality: Patient endorses having any homicidal ideation with plan. Denies any suicidal ideation, intent or plan. Perceptions: Patient denies any visual hallucinations and endorses auditory hallucinations. Though content/process: There is no evidence of any delusional thought content and thought process is linear and goal-directed. Memory and concentration: AOX3, grossly intact for the purposes of this session Judgment and insight: improving mildly IMPRESSIONS: Unspecified mood disorder, Rule out bipolar disorder Borderline personality disorder PTSD Plan: -Patient continues to meet criteria for inpatient psychiatric admission for symptom stabilization and safety. Patient has not signed adult voluntary form and medication consent and was placed in patient's chart. -Medications: Increase Abilify 10 mg daily for mood stabilization/psychosis. Patient is agreeable to take Abilify Maintenna today 400mg IM, next monhtly dose due on 2/7 at [facility]. Celexa 40 mg daily for depression. Continue Trazodone 50 mg QHS for sleep. Hydroxyzine to 50 mg TID PRN for anxiety. -When necessary Ativan and Haldol for agitation/aggression. -NRT - not needed, nonsmoker -SW on board for discharge planning. Encouraged the patient to participate in milieu. Likely discharge tomorrow back home.
[2022-07-01] MEDS ORDERED: ARIPiprazole IM SYRINGE 400 MG (NO CHARGE) PHARMACY STOCK IM ONE (10:45)
[2022-07-01] MEDS ORDERED: TRULICITY SQ ONE (12:00)
[2022-07-01] MEDS: traZODone HCL 50 MG TAB PO SCH (20:33)
[2022-07-01] MEDS: ATORVASTATIN 10 MG TAB PO SCH (20:33)
[2022-07-02 07:11] VITALS: BP 122/73; PULSE 82; RESP 16
[2022-07-02] MEDS: metFORMIN 500 MG TAB PO SCH (08:15)
[2022-07-02] MEDS: CITALOPRAM HYDROBROMIDE 20 MG TAB PO SCH (08:15)
[2022-07-02] MEDS: DAPAGLIFLOZIN PROPANEDIOL 10 MG TABLET PO SCH (08:15)
[2022-07-02] MEDS: PANTOPRAZOLE 40 MG TABLET PO SCH (08:15)
[2022-07-02] MEDS: MULTIVITAMINS, THERA 1 EACH TAB PO SCH (08:15)
[2022-07-02] MEDS: GABAPENTIN 300 MG CAP PO SCH (08:16)
[2022-07-02] MEDS: DOCUSATE 100 MG CAP PO SCH (08:16)
[2022-07-02] MEDS ORDERED: ARIPiprazole 10 MG TAB PO SCH (09:00)
--- NOTE | 2022-07-02 11:30 | P.DS ---
Providers Date of admission: 06/29/22 02:31 Expected date of discharge: 07/02/22 Attending physician: Kei Timmons MD Consults: 06/29/22 02:34 Consult Physician Routine Consulting Provider: Jaylen Jenkins Consult Reason/Comments: History and physical. Medical management Do you want consulting provider notified?: Yes, Notify in am Primary care physician: Marlo Landeros - Discharge Diagnosis(es) (1) Bipolar disorder Current Visit: Yes Status: Acute Priority: High (2) Borderline personality disorder Current Visit: Yes Status: Acute Priority: Medium (3) PTSD (post-traumatic stress disorder) Current Visit: Yes Status: Acute Priority: Medium Hospital Course: Admission HPI: Admission note was completed by Dr Sneed "Patient is a 42 year old female with history of borderline personality disorder and PTSD who was admitted due to homicidal ideations. Per ER notes, "Patient states she is overwhelmed by her current circumstances and is having concerning thoughts of causing harm to the men that have fathered her children. States she does not have custody of her children. Reports no family support. States she is having marital difficulties as well. Reports history of cutting. Had a psychiatric hospitalization in January of 2022. States she has not done anything to harm herself or anyone else. Denies any medical complaints at this time." Per EPS assessment, "Patient states her friend called the ambulance to have her brought in. Patient is alert and oriented x3. BAT 0. Patient denies Suicidal thoughts. Patient admits to having homicidal ideation towards her and 2 other fathers of her children. Patient states she is angry with them and the other made her mad over the internet. Patient admits to being homicidal with a plan to beat them with a baseball bat. Patient states she has been crying alot. Patient also admits to hearing voices telling her "Go do it." Patient states she is trying to fill out papers to get a divorce process started. She also states she lost custody of her kids 5 years ago. Patient has a history of an overdose and cutting about 15 years ago. Patient states she does not do any drugs, doesn't smoke and doesn't drink. Patient states she went to [facility] last week and sees them weekly. This magazine writer went on [facility] to verify and cannot find any documentation of this. Patient states she feels her meds might not be working enough and wants to get help." On my assessment, patient denies suicidal ideations but continues to endorse homicidal thoughts of hurting the three fathers of her four children, and states the thought is still in the back of her head to hurt people who have hurt her in the past. She reports her homicidal ideations were to beat these three men with a baseball bat. She endorses depressed mood, missing her kids and parents. She reports fair sleep and irregular appetite. She endorses voices in her head telling her to go "do it". She feels people "piss her off" to the point she gets like this. She denies visual hallucinations. Patient denies any flight of ideas racing thoughts and increased in goal directed behavior. Patient denies drug, alcohol or tobacco use. Her current home medications are Celexa 40 mg daily, Hydroxyzine 25 mg TID PRN, and Trazodone 50 mg QHS. She reports she was previously on Abilify in the past and it helped." Hospital course: Upon admission to the unit patient was directable and agreeable to commence treatment and signed adult voluntary form. Patient got along well with other patients on the unit and followed unit protocol. Patient was compliant with the medications and denied any side effects throughout hospital course. Patient was started on Abilify by mouth 10 mg daily for mood stabilization/psychosis, patient was given Abilify Maintenna IM 400 mg on 07/01 and tolerated it well and will be due every monthly next dose on 07/29 [facility]. Patient was also started on Celexa 40 mg daily for depression, trazodone 50 mg daily at bedtime for sleep, Vistaril 50 mg 3 times a day when necessary for anxiety. Patient spoke of her stressors and engaged in therapy both group and individual. Patient was also seen by medical team for history and physical exam. Throughout the course of the hospitalization patient gradually improved with regards to mood, anxiety, sleep and became more future oriented with improved insight and judgment. On the day of discharge patient denied any suicidal or homicidal ideations intent or plan denied any auditory or visual hallucinations. Patient endorsed wanting to live for herself and her family. The patient denied any access to guns or weapons. Patient denied any paranoia and did not endorse any delusions. Patient does not have a significant history of substance abuse and was counseled on abstaining from all substances including alcohol and marijuana. Patient was also counseled on the medications and need for regular compliance and was encouraged to follow-up with their outpatient appointment for mental health and also for primary care. Prior to discharge a family meeting will be arranged by social problems specialist to answer any questions and ensure safety upon discharge. Mental status exam: General Appearance: Patient appears to be overweight, stated age is alert, pleasant, and cooperative. Patient is in no acute distress and has improved hygiene and grooming Behavior: Patient is calmly seated without any agitated behavior. Speech: Patient's speech is fluent and nonpressured. Mood/Affect: Patient reports their mood is "better", affect is congruent and euthymic. Suicidality/Homicidality: Patient denies having any suicidal or homicidal ideation intent or plan. Perceptions: Patient denies any auditory or visual hallucinations. Though content/process: There is no evidence of any delusional thought content and thought process is linear and goal-directed. more future oriented Memory and concentration: AOX3, grossly intact for the purposes of this session. Can spell "WORLD" backwards correctly. Judgment and insight: chronically poor, however has improved with guarded prognosis Impression: Bipolar disorder PTSD Borderline personality disorder Plan: -Continue with discharge today as patient has improved and stabilized psychiatrically and is not currently an imminent threat to herself and/or othe rs. Patient will remain at chronically elevated risk for harm to self and/or others due to her impulsivity. -Continue medications: Continue Abilify by mouth 10 mg daily for mood stabilization/psychosis for 14 more days then discontinue. Patient was given Abilify Maintenna 400 mg IM on 07/01 and next dose will be due at [facility] on 07/29. Celexa 40 mg daily for depression, trazodone 50 mg daily at bedtime for sleep. -Patient was counseled on the need for medication compliance and appropriate follow-up at mental health and also primary care for medical issues. Patient verbalized understanding and agreed. -Social work to arrange for and conduct family meeting to ensure safety upon discharge and answer any questions/concerns. Social work also to arrange for patients follow up appointments with [facility] for psychiatric care along with follow up with primary care provider. -Patient counseled on abstaining from recreational drugs and marijuana and alcohol. Was informed/educated on the adverse effects on their physical and mental health. Patient verbally agreed and understood. -Patient was instructed to return to the hospital or seek immediate medical care if their psychiatric or medical symptoms do worsen or reoccur. Allergies Allergy/AdvReac Type Severity Reaction Status Date / Time No Known Allergies Allergy Verified 06/28/22 22:14 Laboratory Results WBC 8.6 k/uL (3.8-10.6) 06/29/22 06:53 RBC 4.53 m/uL (3.80-5.40) 06/29/22 06:53 Hgb 14.1 gm/dL (11.4-16.0) 06/29/22 06:53 Hct 40.6 % (34.0-46.0) 06/29/22 06:53 MCV 89.6 fL (80.0-100.0) 06/29/22 06:53 MCH 31.1 pg (25.0-35.0) 06/29/22 06:53 MCHC 34.7 g/dL (31.0-37.0) 06/29/22 06:53 RDW 13.3 % (11.5-15.5) 06/29/22 06:53 Plt Count 233 k/uL (150-450) 06/29/22 06:53 MPV 7.7 06/29/22 06:53 Neutrophils % 57 % 06/29/22 06:53 Lymphocytes % 31 % 06/29/22 06:53 Monocytes % 5 % 06/29/22 06:53 Eosinophils % 4 % 06/29/22 06:53 Basophils % 1 % 06/29/22 06:53 Neutrophils # 5.0 k/uL (1.3-7.7) 06/29/22 06:53 Lymphocytes # 2.7 k/uL (1.0-4.8) 06/29/22 06:53 Monocytes # 0.4 k/uL (0-1.0) 06/29/22 06:53 Eosinophils # 0.4 k/uL (0-0.7) 06/29/22 06:53 Basophils # 0.1 k/uL (0-0.2) 06/29/22 06:53 Sodium 139 mmol/L (137-145) 06/29/22 06:53 Potassium 4.0 mmol/L (3.5-5.1) 06/29/22 06:53 Chloride 105 mmol/L (98-107) 06/29/22 06:53 Carbon Dioxide 28 mmol/L (22-30) 06/29/22 06:53 Anion Gap 6 mmol/L 06/29/22 06:53 BUN 14 mg/dL (7-17) 06/29/22 06:53 Creatinine 0.71 mg/dL (0.52-1.04) 06/29/22 06:53 Est GFR (CKD-EPI)AfAm >90 (>60 ml/min/1.73 sqM) 06/29/22 06:53 Est GFR (CKD-EPI)NonAf >90 (>60 ml/min/1.73 sqM) 06/29/22 06:53 Glucose 137 mg/dL (74-99) H 06/29/22 06:53 POC Glucose (mg/dL) 146 mg/dL (70-110) H 07/01/22 07:46 POC Glu [employer] Aretha Marquez 07/01/22 07:[address] Glu mg/dL 160 06/29/22 06:53 Hemoglobin A1c 7.2 % (0.0-6.0) H 06/29/22 06:53 Calcium 8.4 mg/dL (8.4-10.2) 06/29/22 06:53 Total Bilirubin 0.5 mg/dL (0.2-1.3) 06/29/22 06:53 Conjugated Bilirubin 0.0 mg/dL (0.0-0.3) 06/29/22 06:53 Unconjugated Bilirubin 0.3 mg/dL (0.0-1.1) 06/29/22 06:53 Delta Bilirubin 0.2 mg/dL (0.0-0.2) 06/29/22 06:53 AST 23 U/L (14-36) 06/29/22 06:53 ALT 25 U/L (4-34) 06/29/22 06:53 Alkaline Phosphatase 75 U/L (38-126) 06/29/22 06:53 Total Protein 6.6 g/dL (6.3-8.2) 06/29/22 06:53 Albumin 3.6 g/dL (3.5-5.0) 06/29/22 06:53 Triglycerides 214.00 mg/dL (0.00-149.00) H 06/29/22 06:53 Cholesterol 217.00 mg/dL (0.00-200.00) H 06/29/22 06:53 LDL Cholesterol, Calc 106.1 mg/dL (0.0-131.0) 06/29/22 06:53 VLDL Cholesterol, Calc 42.80 mg/dL (5.00-40.00) H 06/29/22 06:53 HDL Cholesterol 68.10 mg/dL (40.00-60.00) H 06/29/22 06:53 Cholesterol/HDL Ratio 3.19 Ratio 06/29/22 06:53 TSH 1.250 mIU/L (0.465-4.680) 06/29/22 06:53 Urine Color Light Yellow 06/28/22 23:00 Urine Appearance Clear (Clear) 06/28/22 23:00 Urine pH 5.5 (5.0-8.0) 06/28/22 23:00 Ur Specific [place] 1.038 (1.001-1.035) H 06/28/22 23:00 Urine Protein Negative (Negative) 06/28/22 23:00 Urine Glucose (UA) 4+ (Negative) H 06/28/22 23:00 Urine Ketones Negative (Negative) 06/28/22 23:00 Urine Blood Negative (Negative) 06/28/22 23:00 Urine Nitrite Negative (Negative) 06/28/22 23:00 Urine Bilirubin Negative (Negative) 06/28/22 23:00 Urine Urobilinogen <2.0 mg/dL (<2.0) 06/28/22 23:00 Ur Leukocyte Esterase Negative (Negative) 06/28/22 23:00 Urine HCG, Qual Not Detected (Not Detectd) 06/28/22 23:00 Urine Opiates Screen Not Detected (NotDetected) 06/28/22 23:00 Ur Oxycodone Screen Not Detected (NotDetected) 06/28/22 23:00 Urine Methadone Screen Not Detected (NotDetected) 06/28/22 23:00 Ur Propoxyphene Screen Not Detected (NotDetected) 06/28/22 23:00 Ur Barbiturates Screen Not Detected (NotDetected) 06/28/22 23:00 U Tricyclic Antidepress Not Detected (NotDetected) 06/28/22 23:00 Ur Phencyclidine Scrn Not Detected (NotDetected) 06/28/22 23:00 Ur Amphetamines Screen Not Detected (NotDetected) 06/28/22 23:00 U Methamphetamines Scrn Not Detected (NotDetected) 06/28/22 23:00 U Benzodiazepines Scrn Not Detected (NotDetected) 06/28/22 23:00 Urine Cocaine Screen Not Detected (NotDetected) 06/28/22 23:00 U Marijuana (THC) Screen Not Detected (NotDetected) 06/28/22 23:00 Coronavirus (PCR) Not Detected (Not Detectd) 06/29/22 01:51 Vital Signs Temp 97.4 F L 07/02/22 06:52 Pulse 82 07/02/22 06:52 Resp 16 07/02/22 06:52 BP 122/73 07/02/22 06:52 Pulse Ox 94 L 07/02/22 06:52 FiO2 Patient Condition at Discharge: Stable Plan - Discharge Summary Discharge Rx Participant: Yes New Discharge Prescriptions: New traZODone HCL [Desyrel] 50 mg PO HS 30 Days tab ARIPiprazole [Abilify] 10 mg PO HS 14 Days tab Citalopram Hydrobromide [CeleXA] 40 mg PO QAM 30 Days tab Gabapentin [Neurontin] 300 mg PO BID cap Pantoprazole [Protonix] 40 mg PO AC-BRKFST tab ARIPiprazole IM [Abilify Maintena] 400 mg IM QMONTHLY #1 each Continue Multivitamin [Multivitamins Adult Gummies] 1 each PO DAILY metFORMIN HCL 1,000 mg PO BID Dulaglutide [Trulicity] 0.75 mg SQ Q7DAYS Docusate [Colace] 100 mg PO BID 30 Days #20 capsule Atorvastatin [Lipitor] 10 mg PO HS 30 Days tab Empagliflozin [Jardiance] 25 mg PO DAILY Discontinued Citalopram Hydrobromide [CeleXA] 40 mg PO QAM traZODone HCL 50 mg PO HS busPIRone HCL [Buspar] 30 mg PO TID HYDROcodone/APAP 5-325MG [[place] 5-325] 1 tab PO Q6HR PRN #10 tab PRN Reason: Pain Ondansetron Odt [Zofran Odt] 4 mg PO Q8HR PRN #12 tab PRN Reason: Nausea Discharge Medication List Multivitamin [Multivitamins Adult Gummies] 1 each PO DAILY 12/07/18 [History] Dulaglutide [Trulicity] 0.75 mg SQ Q7DAYS 06/29/22 [History] Empagliflozin [Jardiance] 25 mg PO DAILY 06/29/22 [History] metFORMIN HCL 1,000 mg PO BID 06/29/22 [History] ARIPiprazole IM [Abilify Maintena] 400 mg IM QMONTHLY #1 each 07/02/22 [Rx] ARIPiprazole [Abilify] 10 mg PO HS 14 Days tab 07/02/22 [Rx] Atorvastatin [Lipitor] 10 mg PO HS 30 Days tab 07/02/22 [Rx] Citalopram Hydrobromide [CeleXA] 40 mg PO QAM 30 Days tab 07/02/22 [Rx] Docusate [Colace] 100 mg PO BID 30 Days #20 capsule 07/02/22 [Rx] Gabapentin [Neurontin] 300 mg PO BID cap 07/02/22 [Rx] Pantoprazole [Protonix] 40 mg PO AC-BRKFST tab 07/02/22 [Rx] traZODone HCL [Desyrel] 50 mg PO HS 30 Days tab 07/02/22 [Rx] Follow up Appointment(s)/Referral(s): [facility] [Outside] - 07/08/22 1:00 pm (07/08/22 1:00-1:45PM with Tea Mcrae 07/09/2022 12:30PM - 2:00PM with Jon Sullivan) Ghassan Dacosta MD [REFERRING] - 1-2 days Activity/Diet/Wound Care/Special Instructions: Avoid the use of street drugs and alcohol. Take all prescriptions as prescribed. When you are in need of refills on your medications, please contact your medical provider and/or outpatient psychiatrist to have this done. Please go to scheduled outpatient appointment for aftercare treatment. If symptoms re turn or become worse, call the crisis line at and/or go to the nearest emergency room for evaluation Discharge Disposition: HOME SELF-CARE
[2022-07-06] MEDS ORDERED: NON FORMULARY DRUG (Dulaglutide [Trulicity] 0.75 MG/0.5 ML Each) SQ SCH (09:00)
== END 2022-07-02 13:56 | disposition home or self-care (01) | DRG 885 ==
LOC: EC 22:06 → 3MHU 06-29 02:31
PROVIDERS: ADMIT Psychiatry & Neurology Psychiatry; ATTEND Psychiatry & Neurology Psychiatry
DX: F31.9 Bipolar disorder, unspecified (principal); R45.851 Suicidal ideations; Z68.42 Body mass index [BMI] 45.0-49.9, adult; F43.10 Post-traumatic stress disorder, unspecified; E11.40 Type 2 diabetes mellitus with diabetic neuropathy, unspecified; E66.01 Morbid (severe) obesity due to excess calories; E78.5 Hyperlipidemia, unspecified; F60.3 Borderline personality disorder; I10 Essential (primary) hypertension; K59.00 Constipation, unspecified; R45.850 Homicidal ideations; Z79.84 Long term (current) use of oral hypoglycemic drugs; Z79.899 Other long term (current) drug therapy; Z86.32 Personal history of gestational diabetes; Z91.51 Personal history of suicidal behavior; Z91.52 Personal history of nonsuicidal self-harm
CPT/HCPCS: 80053; 80061; 80306; 81003; 81025; 82075; 82248; 83036; 84443; 85025; 87635; 99285

== ENCOUNTER 2022-09-01 14:39 | Emergency (ER) | payer OTHER ==
[2022-09-01 15:17] VITALS: BP 133/77; PULSE 110; RESP 20; TEMP 98.3
--- NOTE | 2022-09-01 15:21 | ED ---
General Adult HPI - General Source: patient, RN notes reviewed Mode of arrival: ambulatory Limitations: no limitations <Lev Quintana - Last Filed: 09/01/22 15:19> - General Source: patient, RN notes reviewed Mode of arrival: ambulatory Limitations: no limitations <Simon Delgado - Last Filed: 09/01/22 19:05> - General Stated complaint: Abd Pain Time Seen by Provider: 09/01/22 15:20 - History of Present Illness Initial comments: 42-year-old female presents emergency Department chief complaint of diffuse abdominal pain. Patient states states that she's had a lipoma removed off her abdomen before. Patient states she does have history of GERD. Patient denies fevers chills slight nausea no statement change in bowel habits. (Lev Quintana) Patient is a pleasant 42-year-old female presenting to the emergency department with concern for diarrhea and abdominal discomfort. Onset of symptoms was 3-4 days ago. Patient is having diarrhea 3-4 times per day. No fever. Abdominal discomfort is diffuse. Patient has nausea but no vomiting. No history of chronic similar symptoms. (Simon Delgado) - Related Data Home Medications Medication Instructions Recorded Confirmed Empagliflozin [Jardiance] 25 mg PO DAILY 06/29/22 09/01/22 metFORMIN HCL 1,000 mg PO BID 06/29/22 09/01/22 Citalopram Hydrobromide [CeleXA] 40 mg PO DAILY 09/01/22 09/01/22 Dulaglutide [Trulicity] 1.5 mg SQ WE 09/01/22 09/01/22 Estarylla 1 tab PO DAILY 09/01/22 09/01/22 Lurasidone [Latuda] 20 mg PO W/SUPPER 09/01/22 09/01/22 Omeprazole 20 mg PO DAILY 09/01/22 09/01/22 lisinopriL [Prinivil] 10 mg PO DAILY 09/01/22 09/01/22 Previous Rx's Medication Instructions Recorded Atorvastatin [Lipitor] 10 mg PO HS 30 Days tab 07/02/22 Docusate [Colace] 100 mg PO BID 30 Days #20 capsule 07/02/22 Gabapentin [Neurontin] 300 mg PO BID cap 07/02/22 traZODone HCL [Desyrel] 50 mg PO HS 30 Days tab 07/02/22 Dicyclomine [Bentyl] 20 mg PO QID PRN #15 tablet 09/01/22 Allergies Allergy/AdvReac Type Severity Reaction Status Date / Time No Known Allergies Allergy Verified 09/01/22 18:01 Review of Systems ROS Other: All systems not noted in ROS Statement are negative. <Lev Quintana - Last Filed: 09/01/22 15:19> ROS Other: All systems not noted in ROS Statement are negative. Constitutional: Denies: fever, chills Eyes: Denies: eye pain ENT: Denies: ear pain Respiratory: Denies: cough Cardiovascular: Denies: chest pain Endocrine: Denies: fatigue Gastrointestinal: Reports: as per HPI, nausea, diarrhea. Denies: vomiting, con stipation Genitourinary: Denies: urgency Musculoskeletal: Denies: back pain Skin: Denies: rash Neurological: Denies: weakness <Simon Delgado - Last Filed: 09/01/22 19:05> ROS Statement: Those systems with pertinent positive or pertinent negative responses have been documented in the HPI. Past Medical History Past Medical History: Diabetes Mellitus, GERD/Reflux, Hyperlipidemia Additional Past Medical History / Comment(s): Gestational diabetes with first , History of Any Multi-Drug Resistant Organisms: None Reported Past Surgical History: Section Additional Past Surgical History / Comment(s): D&C, tumor removed to RLQ of abdomen, benign. Past Anesthesia/Blood Transfusion Reactions: No Reported Reaction Past Psychological History: Anxiety, Bipolar, Depression Smoking Status: Never smoker Past Alcohol Use History: None Reported Past Drug Use History: None Reported - Past Family History Father History Unknown: Yes Family Medical History: Diabetes Mellitus <Lev Quintana - Last Filed: 09/01/22 15:19> General Exam Limitations: no limitations <Lev Quintana - Last Filed: 09/01/22 15:19> Limitations: no limitations General appearance: alert, in no apparent distress Head exam: Present: normocephalic Eye exam: Present: normal appearance Neck exam: Present: normal inspection Respiratory exam: Present: normal lung sounds bilaterally Cardiovascular Exam: Present: regular rate, normal rhythm GI/Abdominal exam: Present: soft, normal bowel sounds. Absent: distended, tenderness, guarding, rebound, rigid, pulsatile mass Extremities exam: Present: normal inspection Neurological exam: Present: alert Psychiatric exam: Present: normal affect, normal mood Skin exam: Present: normal color <DelgadoSimon - Last Filed: 09/01/22 19:05> - General Exam Comments Initial Comments: Visual Physical Exam Vital signs reviewed General: Well-appearing, nontoxic, no acute distress. Head: Normocephalic, atraumatic Eyes: PERRLA, EOMI ENT: Airway patent Chest: Nonlabored breathing Skin: No visual rash, normal skin tone Neuro: Alert and oriented 3 Musculoskeletal: No gross abnormalities (Lev Quintana) Course Vital Signs 09/01/22 15:14 Temperature 98.3 F Pulse Rate 110 H Respiratory 20 Rate Blood Pressure 133/77 O2 Sat by Pulse 97 Oximetry Medical Decision Making - Lab Data Result diagrams: 09/01/22 15:39 09/01/22 15:39 <DelgadoSimon - Last Filed: 09/01/22 19:05> - Medical Decision Making Was pt. sent in by a medical professional or institution (, PA, OIL WELL SERVICES SUPERVISOR, urgent care, hospital, or fdc...) When possible be specific @ -No Did you speak to anyone other than the patient for history (EMS, parent, family, police, friend...)? What history was obtained from this source @ -No Did you review nursing and triage notes (agree or disagree)? Why? @ -I reviewed and agree with nursing and triage notes Were old charts reviewed (outside hosp., previous admission, EMS record, old EKG, old radiological studies, urgent care reports/EKG's, fdc records)? Report findings @ -No old charts were reviewed Differential Diagnosis (chest pain, altered mental status, abdominal pain women, abdominal pain men, vaginal bleeding, weakness, fever, dyspnea, syncope, headache, dizziness, GI bleed, back pain, seizure, CVA, palpatations, mental health)? @ -not applicable EKG interpreted by me (3pts min.). @ -As above X-rays interpreted by me (1pt min.). @ -[Abdominal x-ray shows no acute process CT interpreted by me (1pt min.). @ -None done U/S interpreted by me (1pt. min.). @ -None done What testing was considered but not performed or refused? (CT, X-rays, U/S, labs )? Why? @ -None What meds were considered but not given or refused? Why? @ -Ordered Bentyl however patient refused secondary to not wanting IM medication Did you discuss the management of the patient with other professionals (professionals i.e. , PA, OIL WELL SERVICES SUPERVISOR, lab, RT, psych nurse, social worker clinical, battery plate assembler, teacher, bank secrecy act officer, human services case manager)? Give summary @ -No Was smoking cessation discussed for >3mins.? @ -No Was critical care preformed (if so, how long)? @ -No Were there social determinants of health that impacted care today? How? (Homelessness, low income, unemployed, alcoholism, drug addiction, trans portation, low edu. Level, literacy, decrease access to med. care, half-way, rehab)? @ -No Was there de-escalation of care discussed even if they declined (Discuss DNR or withdrawal of care, Hospice)? DNR status @ -No What co-morbidities impacted this encounter? (DM, HTN, Smoking, COPD, CAD, Cancer, CVA, ARF, Chemo, Hep., AIDS, mental health diagnosis, sleep apnea, morbid obesity)? @ -None Was patient admitted / discharged? Hospital course, mention meds given and route, prescriptions, significant lab abnormalities, going to OR and other pertinent info. @ -Patient reevaluated and feeling much better. Patient greenish discharge home. Patient updated on results and if Undiagnosed new problem with uncertain prognosis? @ -No Drug Therapy requiring intensive monitoring for toxicity (Heparin, Nitro, Insulin, Cardizem)? @ -No Were any procedures done? @ -No Diagnosis/symptom? @ -Diarrhea Acute, or Chronic, or Acute on Chronic? @ -Acute Uncomplicated (without systemic symptoms) or Complicated (systemic symptoms)? @ -default Side effects of treatment? @ -No Exacerbation, Progression, or Severe Exacerbation? @ -No Poses a threat to life or bodily function? How? (Chest pain, USA, VT, pneumonia, PE, COPD, DKA, ARF, appy, cholecystitis, CVA, Diverticulitis, Homicidal, Suicidal, threat to staff... and all critical care pts) @ -No (Simon Delgado) - Lab Data Lab Results 09/01/22 09/01/22 09/01/22 Range/Units 15:39 15:39 15:39 WBC 9.8 (3.8-10.6) k/uL RBC 4.88 (3.80-5.40) m/uL Hgb 14.9 (11.4-16.0) gm/dL Hct 43.5 (34.0-46.0) % MCV 89.2 (80.0-100.0) fL MCH 30.4 (25.0-35.0) pg MCHC 34.1 (31.0-37.0) g/dL RDW 13.3 (11.5-15.5) % Plt Count 310 (150-450) k/uL MPV 7.3 Neutrophils % 63 % Lymphocytes % 26 % Monocytes % 5 % Eosinophils % 3 % Basophils % 1 % Neutrophils # 6.2 (1.3-7.7) k/uL Lymphocytes # 2.6 (1.0-4.8) k/uL Monocytes # 0.5 (0-1.0) k/uL Eosinophils # 0.3 (0-0.7) k/uL Basophils # 0.1 (0-0.2) k/uL Sodium (137-145) mmol/L Potassium (3.5-5.1) mmol/L Chloride (98-107) mmol/L Carbon Dioxide (22-30) mmol/L Anion Gap mmol/L BUN (7-17) mg/dL Creatinine (0.52-1.04) mg/dL Est GFR (CKD-EPI)AfAm (>60 ml/min/1.73 sqM) Est GFR (CKD-EPI)NonAf (>60 ml/min/1.73 sqM) Glucose (74-99) mg/dL Calcium (8.4-10.2) mg/dL Total Bilirubin (0.2-1.3) mg/dL AST (14-36) U/L ALT (4-34) U/L Alkaline Phosphatase (38-126) U/L Total Protein (6.3-8.2) g/dL Albumin (3.5-5.0) g/dL Amylase (30-110) U/L Lipase (23-300) U/L Urine Color Red Urine Appearance Cloudy H (Clear) Urine pH 5.5 (5.0-8.0) Ur Specific [place] 1.036 H (1.001-1.035) Urine Protein 1+ H (Negative) Urine Glucose (UA) 4+ H (Negative) Urine Ketones 3+ H (Negative) Urine Blood Large H (Negative) Urine Nitrite Negative (Negative) Urine Bilirubin Negative (Negative) Urine Urobilinogen <2.0 (<2.0) mg/dL Ur Leukocyte Esterase Moderate H (Negative) Urine RBC >182 H (0-5) /hpf Urine WBC 64 H (0-5) /hpf Ur Squamous Epith Cells 8 H (0-4) /hpf Urine HCG, Qual Not Detected (Not Detectd) 09/01/22 Range/Units 15:39 WBC (3.8-10.6) k/uL RBC (3.80-5.40) m/uL Hgb (11.4-16.0) gm/dL Hct (34.0-46.0) % MCV (80.0-100.0) fL MCH (25.0-35.0) pg MCHC (31.0-37.0) g/dL RDW (11.5-15.5) % Plt Count (150-450) k/uL MPV Neutrophils % % Lymphocytes % % Monocytes % % Eosinophils % % Basophils % % Neutrophils # (1.3-7.7) k/uL Lymphocytes # (1.0-4.8) k/uL Monocytes # (0-1.0) k/uL Eosinophils # (0-0.7) k/uL Basophils # (0-0.2) k/uL Sodium 139 (137-145) mmol/L Potassium 3.9 (3.5-5.1) mmol/L Chloride 106 (98-107) mmol/L Carbon Dioxide 23 (22-30) mmol/L Anion Gap 10 mmol/L BUN 11 (7-17) mg/dL Creatinine 0.74 (0.52-1.04) mg/dL Est GFR (CKD-EPI)AfAm >90 (>60 ml/min/1.73 sqM) Est GFR (CKD-EPI)NonAf >90 (>60 ml/min/1.73 sqM) Glucose 128 H (74-99) mg/dL Calcium 9.2 (8.4-10.2) mg/dL Total Bilirubin 0.6 (0.2-1.3) mg/dL AST 32 (14-36) U/L ALT 40 H (4-34) U/L Alkaline Phosphatase 76 (38-126) U/L Total Protein 7.8 (6.3-8.2) g/dL Albumin 4.3 (3.5-5.0) g/dL Amylase 54 (30-110) U/L Lipase 54 (23-300) U/L Urine Color Urine Appearance (Clear) Urine pH (5.0-8.0) Ur Specific [place] (1.001-1.035) Urine Protein (Negative) Urine Glucose (UA) (Negative) Urine Ketones (Negative) Urine Blood (Negative) Urine Nitrite (Negative) Urine Bilirubin (Negative) Urine Urobilinogen (<2.0) mg/dL Ur Leukocyte Esterase (Negative) Urine RBC (0-5) /hpf Urine WBC (0-5) /hpf Ur Squamous Epith Cells (0-4) /hpf Urine HCG, Qual (Not Detectd) Disposition <Lev Quintana - Last Filed: 09/01/22 15:19> Is patient prescribed a controlled substance at d/c from ED?: No Time of Disposition: 19:04 <Simon Delgado - Last Filed: 09/01/22 19:05> Clinical Impression: Abdominal pain, Diarrhea Disposition: HOME SELF-CARE Condition: Stable Instructions (If sedation given, give patient instructions): Abdominal Pain (ED), Acute Diarrhea (ED) Additional Instructions: Please do follow-up with primary care physician in the next couple days for recheck. Return for pain, fever, not tolerating oral intake, worsening symptoms or other concerns. Prescription has been sent to pharmacy. Prescriptions: Dicyclomine [Bentyl] 20 mg PO QID PRN #15 tablet PRN Reason: Pain Referrals: Marlo Landeros DO [Primary Care Provider] - 1-2 days
[2022-09-01 16:12] LABS: African American GFR (CKD) >90 (>60 ml/min/1.73 sqM); Albumin 4.3 g/dL (3.5-5.0); Amylase 54 U/L (30-110); Anion Gap 10 mmol/L; Blood Urea Nitrogen 11 mg/dL (7-17); Calcium 9.2 mg/dL (8.4-10.2); Carbon Dioxide 23 mmol/L (22-30); Chloride 106 mmol/L (98-107); Glucose 128 mg/dL (74-99); Non-African American GFR(CKD) >90 (>60 ml/min/1.73 sqM); Potassium 3.9 mmol/L (3.5-5.1); Sodium 139 mmol/L (137-145); Total Protein 7.8 g/dL (6.3-8.2)
--- NOTE | 2022-09-01 16:12 | XR ---
EXAMINATION TYPE: XR KUB DATE OF EXAM: 09/01/2022 COMPARISON: NONE HISTORY: Trauma pain TECHNIQUE: Upright KUB image of the abdomen was obtained with 2 radiographs. FINDINGS: Small bowel demonstrates no evidence for dilatation or air fluid levels. Gas and fecal material is seen in non-distended colon. No convincing evidence for pneumoperitoneum. No unusual calcifications. The lung bases are clear. The osseous structures are intact. IMPRESSION: Overall nonobstructive bowel gas pattern.
[2022-09-01 16:14] LABS: ALT 40 U/L (4-34); AST 32 U/L (14-36); Alkaline Phosphatase 76 U/L (38-126); Lipase 54 U/L (23-300); Total Bilirubin 0.6 mg/dL (0.2-1.3)
[2022-09-01 16:27] LABS: Basophils # (A) 0.1 k/uL (0-0.2); Basophils % (A) 1 %; Eosinophils # (A) 0.3 k/uL (0-0.7); Eosinophils % (A) 3 %; HCT 43.5 % (34.0-46.0); HGB 14.9 gm/dL (11.4-16.0); Lymphocytes # (A) 2.6 k/uL (1.0-4.8); Lymphocytes % (A) 26 %; MCH 30.4 pg (25.0-35.0); MCHC 34.1 g/dL (31.0-37.0); MCV 89.2 fL (80.0-100.0); Mean Platelet Volume 7.3; Monocytes # (A) 0.5 k/uL (0-1.0); Monocytes % (A) 5 %; Neutrophils # (A) 6.2 k/uL (1.3-7.7); Neutrophils % (A) 63 %; Platelet Count 310 k/uL (150-450); RBC 4.88 m/uL (3.80-5.40); RDW 13.3 % (11.5-15.5); WBC 9.8 k/uL (3.8-10.6)
[2022-09-01 17:25] LABS: Appearance,Urine Cloudy (Clear); Bilirubin,Urine Negative (Negative); Blood,Urine Large (Negative); Color,Urine Red; Glucose,Urine (UA) 4+ (Negative); Leukocyte Esterase,Urine Moderate (Negative); Nitrite,Urine Negative (Negative); PH, Urine 5.5 (5.0-8.0); Protein,Urine 1+ (Negative); RBC,Urine >182 /hpf (0-5); Specific Gravity,Urine 1.036 (1.001-1.035); Squamous Epithelial Cell,Urine 8 /hpf (0-4); Urobilinogen,Urine <2.0 mg/dL (<2.0); WBC,Urine 64 /hpf (0-5)
[2022-09-01 17:27] LABS: Ketones,Urine 3+ (Negative)
[2022-09-01] MEDS ORDERED: SODIUM CHLORIDE 0.9% 1,000 ML IV STA (17:28)
[2022-09-01] MEDS: DICYCLOMINE 10 MG/ML 2 ML AMP IM STA ×2 (18:11→18:15)
== END 2022-09-01 19:13 | disposition home or self-care (01) ==
LOC: EC 14:39
DX: R19.7 Diarrhea, unspecified (principal); R10.9 Unspecified abdominal pain; E11.9 Type 2 diabetes mellitus without complications; E78.5 Hyperlipidemia, unspecified; K21.9 Gastro-esophageal reflux disease without esophagitis; F41.9 Anxiety disorder, unspecified; F31.9 Bipolar disorder, unspecified; Z79.84 Long term (current) use of oral hypoglycemic drugs; Z79.899 Other long term (current) drug therapy
CPT/HCPCS: 36415; 74018; 80053; 81001; 81025; 82150; 83690; 85025; 87086; 96360; 99284

== ENCOUNTER → 2023-07-01 | Outpatient (CLI) | payer OTHER ==
[2023-07-01 15:22] LABS: Partial Thromboplastin Time 26.1 sec (22.0-30.0); Prothrombin Time 10.6 sec (10.0-12.5)
--- NOTE | 2023-07-01 17:20 | P.BASOAP ---
Subjective Progress Note Date: 07/01/23 Has complications from band and needs band removal, possible gallbladder too. DOing well from hernia surgery. NO hernia on exam. Assessment/Plan Plan: Date: Initial Weight: Initial BMI: Current Weight: Current BMI: Type of Surgery: Total Volume in Band: Previous Volume: Volume Removed: Volume Added: Band Size:
[2023-07-01 18:23] LABS: HCT 38.4 % (37.2-46.3); HGB 12.6 g/dL (12.0-15.0); MCHC 32.8 g/dL (32.0-37.0); MCV 88.3 FL (80.0-97.0); NRBC Per 100 WBC 0 X 10*3/uL (0.00-0.01); Platelet Count 296 X 10*3/uL (140-440); RBC 4.35 X 10*6/uL (4.10-5.20); RDW 12.1 % (11.5-14.5); WBC 9.83 X 10*3/uL (4.50-10.00)
[2023-07-01 18:49] LABS: % Iron Saturation 15.54 (12.00-45.00); ALT 18 U/L (8-44); AST 17 U/L (13-35); Albumin/Globulin Ratio 1.38 Ratio (1.60-3.17); Alkaline Phosphatase 99 U/L (41-126); Calcium 9.7 mg/dL (8.7-10.3); Carbon Dioxide 26.3 mmol/L (21.6-31.8); Chloride 103 mmol/L (96-109); Chol/HDL Ratio 4.12 Ratio; Ferritin 42.4 ng/mL (10.0-291.0); Globulin 2.9 g/dL (1.6-3.3); Glucose 110 mg/dL (70-110); Iron 55 UG/DL (50-170); LDL Cholesterol,Calculated 147.4 mg/dL (0.0-131.0); Magnesium 1.7 mg/dL (1.5-2.4); Phosphorus 3.5 mg/dL (2.4-5.1); Sodium 142 mmol/L (135-145); Total Bilirubin 0.4 mg/dL (0.3-1.2); Total Iron Binding Capacity 354 UG/DL (228-460); Total Protein 6.9 g/dL (6.2-8.2)
[2023-07-01 18:52] LABS: Prealbumin 24.4 mg/dL (18.0-42.0)
[2023-07-02 13:29] LABS: Zinc, Serum 65 ug/dL (60-130)
[2023-07-03 06:30] LABS: Vitamin A 59 ug/dL (38-106)
[2023-07-03 09:42] LABS: Vit B1(Thiamine) 74 ug/L (38-122)
== END | disposition home or self-care (01) ==
LOC: LABWHC1 14:04
PROVIDERS: ATTEND Surgery Plastic and Reconstructive Surgery
DX: E66.01 Morbid (severe) obesity due to excess calories (principal); E89.1 Postprocedural hypoinsulinemia; D50.8 Other iron deficiency anemias; E44.0 Moderate protein-calorie malnutrition; E55.9 Vitamin D deficiency, unspecified; E44.1 Mild protein-calorie malnutrition; E45 Retarded development following protein-calorie malnutrition; K74.1 Hepatic sclerosis; N19 Unspecified kidney failure; K50.90 Crohn's disease, unspecified, without complications; D50.9 Iron deficiency anemia, unspecified; T56.894A Toxic effect of other metals, undetermined, initial encounter; R94.31 Abnormal electrocardiogram [ECG] [EKG]
CPT/HCPCS: 84255; 84134; 84425; 80061; 80053; 82607; 82728; 82525; 82746; 83540; 83550; 83735; 84100; 84443; 84590; 84630; 85027; 85610; 85730; 82306; 83970; 83036; 80307; 93005; 36415; G0480; 80323

== ENCOUNTER → 2023-07-01 | Outpatient (CLI) | payer OTHER ==
[2023-07-01 13:03] VITALS: BP 146/91; PULSE 85; TEMP 97.6; BMI 49.6
--- NOTE | 2023-07-01 13:53 | P.HPBAR ---
Bariatric H&P - History & Physicial H&P Date: 07/01/23 History & Physicial: Visit/CC: new patient Patient initial contact: Initial weight: Initial weight in pounds: Height: 5 ft 5.5 in Initial BMI: Last weight: Current weight: 137.438 kg Current weight in pounds: 303.00 Current BMI: 49.6 [place] body weight (based on NIH guidelines): 57.833 kg Excess body weight loss: The patient is a 43 year-old F who presents for Bariatric Assessment. DATE OF SERVICE: 07/01/23 REASON FOR CONSULTATION: Initial bariatric evaluation. HISTORY OF PRESENT ILLNESS: Aura Thakur is a 43-year-old female who comes with lifelong morbid obesity. As a result of her morbid obesity she has d eveloped diabetes type 2, hyperlipidemia, osteoarthritis of the lower extremity. She comes in for the sleeve gastrectomy. She still has her gallbladder. She eats pizza and has occasional belly pain. She has intolerance to greasy foods. Her older sister had her gallbladder removal. She has lower back and bilateral hip pain. She denies knee pain. No ankle pain. No major abdominal surgeries. No DVTs in family. She denies inflammatory bowel disease. Her aunt has breast cancer. She denies dysphagia. She denies food allergies. Her highest weight is 357 pounds and had lost 60 pounds. She lost weight with exercise. All family members are overweight. She presents first time in consultation. At height of 5 feet 5.5 inches, her ideal body weight is 149 pounds. She comes in 302 pounds. Her body mass index is 49.7. Her highest weight is 357 pounds, body mass index is 58.6. She is 154 pounds overweight. PAST MEDICAL HISTORY: 1. Morbid obesity due to excess calories 2. Body mass index of 58.6 3. Diabetes type 2, [id number] 4. Depressive disorder 5. Generalized anxiety disorder 6. Bipolar disorder 7. Posttraumatic stress disorder 8. Gastroesophageal reflux disease 9. Hyperlipidemia 10. 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 Osteoarthritis bilateral hip PAST SURGICAL HISTORY: 1. Dilatation and curettage 2. section HOME MEDICATIONS: Home Medications Medication Instructions Recorded Confirmed Empagliflozin [Jardiance] 25 mg PO DAILY 06/29/22 07/22/23 Citalopram Hydrobromide [CeleXA] 40 mg PO DAILY 09/01/22 07/22/23 Dulaglutide [Trulicity] 3 mg SQ WE 09/01/22 07/22/23 Estarylla 1 tab PO DAILY 09/01/22 07/22/23 Lurasidone [Latuda] 20 mg PO W/SUPPER 09/01/22 07/22/23 Docusate [Colace] 100 mg PO DAILY PRN 07/01/23 07/22/23 Multivitamins, Thera [Multivitamin 1 tab PO DAILY 07/01/23 07/22/23 (formulary)] Cholecalciferol (Vitamin D3) 50,000 unit PO WEEKLY 07/06/23 07/22/23 [Vitamin D3] Previous Rx's Medication Instructions Recorded Atorvastatin [Lipitor] 10 mg PO HS 30 Days tab 07/02/22 Gabapentin [Neurontin] 300 mg PO BID cap 07/02/22 traZODone HCL [Desyrel] 50 mg PO HS 30 Days tab 07/02/22 Dicyclomine [Bentyl] 20 mg PO QID PRN #15 tablet 09/01/22 ALLERGIES: Allergies Allergy/AdvReac Type Severity Reaction Status Date / Time No Known Allergies Allergy Verified 07/22/23 12:21 SOCIAL HISTORY: No past tobacco use. FAMILY HISTORY: No family history of ulcerative colitis disease or Crohn's disease. Family history of morbid obesity. No lupus in the family. No reports of stomach or esophageal cancer. Family history gallbladder disease. Aunt with breast cancer REVIEW OF ORGAN SYSTEMS: CONSTITUTIONAL: At height of 5 feet 5.5 inches, her ideal body weight is 149 pounds. She comes in 302 pounds. Her body mass index is 49.7. Her highest weight is 357 pounds, body mass index is 58.6. She is 154 pounds overweight. HEENT: Denies any active troubles with vision or hearing. ENDOCRINE: Has diabetes. No hypothyroidism. CARDIOVASCULAR: Denies past reports of palpitations or heart attacks or chest pain. Denies hypertensive heart disease. RESPIRATORY: Has daytime somnolence. Has asthma. Has chronic obstructive pulmonary disease. GASTROINTESTINAL: Denies any bright red blood per rectum. No diarrhea. No const ipation. Has gastroesophageal reflux disease. GENITOURINARY: Denies bladder urgency. No recent blood in urine MUSCULOSKELETAL: Has lower back pain and joint pain. Has osteoarthritis of the knees. NEURO: No headaches. No seizure disorders. PSYCH: Has depression. No suicidal ideation. Has posttraumatic stress disorder. Has bipolar disorder. RHEUMATOLOGIC: No lupus. No rheumatoid arthritis. HEMATOLOGIC: Denies any abnormal bleeding or bruising. SKIN: No rash. No skin cancer. PHYSICAL EXAM: VITAL SIGNS: Height 5 foot 5.5 inches, weight 303 pounds. BMI 49.7 Vital Signs Temp 97.6 F 07/01/23 12:52 Pulse 85 07/01/23 12:52 Resp BP 146/91 07/01/23 12:52 Pulse Ox FiO2 GENERAL: Well-developed in no acute distress. HEENT: No scleral icterus. Extraocular movements grossly intact. Hears conversational speech. No nasal drainage. NECK: Supple without lymphadenopathy. CHEST: Nonlabored respirations with equal bilateral excursions. CARDIOVASCULAR: Regular rate and regular rhythm. Distal 2+ pulses. ABDOMEN: Obese, soft, nontender, nondistended. MUSCULOSKELETAL: No clubbing, cyanosis. NEURO: No focal or lateralizing signs. Cranial nerves 2 through 12 grossly within normal limits. PSYCH: Appropriate affect. Alert and oriented to person, place and time. SKIN: Good skin turgor. Well perfused. ASSESSMENT: 1. Morbid obesity due to excess calories 2. Body mass index of 58.6 3. Diabetes type 2, [id number] 4. Depressive disorder 5. Generalized anxiety disorder 6. Bipolar disorder 7. Posttraumatic stress disorder 8. Gastroesophageal reflux disease 9. Hyperlipidemia 10. 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 Osteoarthritis bilateral hips PLAN: 1. Surgical options including band, gastric bypass, sleeve gastrectomy were described in detail. Alternatives such as gastric balloon including duodenal switch were described. He is looking into the gastric bypass. 2. The [place] bariatric surgical collaborative data and outcomes available 3. Recommend a bariatric metabolic panel to evaluate for micro- including macronutrient deficiencies. 4. For history of daytime somnolence, recommend evaluation and treatment for sleep apnea. 5. Dietary surveillance and counseling was reviewed. Increased protein intake over 65 grams daily advised. 6. Will need cardiac risk assessment. 7. Recommend medical risk assessment. 8. Psych assessment per insurance guidelines. 9. Recommend upper endoscopy. 10. Recommend 12-lead EKG. 11. Recommend esophagram 12. Recommend full urine metabolites testing Thank you for this consultation. Past Medical History Past Medical History: Diabetes Mellitus, GERD/Reflux, Hyperlipidemia Additional Past Medical History / Comment(s): Gestational diabetes with first , History of Any Multi-Drug Resistant Organisms: None Reported Past Surgical History: Section Additional Past Surgical History / Comment(s): D&C, tumor removed to RLQ of abdomen, benign. Past Anesthesia/Blood Transfusion Reactions: No Reported Reaction Past Psychological History: Anxiety, Bipolar, Depression, PTSD Smoking Status: Never smoker Past Alcohol Use History: None Reported Past Drug Use History: None Reported - Past Family History Father History Unknown: Yes Family Medical History: Diabetes Mellitus Surgical - Exam Vital Signs Temp Pulse BP 97.6 F 85 146/91 07/01/23 12:52 07/01/23 12:52 07/01/23 12:52 Bariatric Checklist Checklist: Plan: Checklist: EGD: 1. Hiatal hernia: 2. H. Pylori: HgbA1c: Vitamin D: Smoking: Never smoker Primary care physician referral: Dr. Kaplan Psychiatry clearance: Cardiology clearance: Sleep study: Diet journal: VTE risk score: VTE risk level: Rehab needs at discharge:
== END ==
LOC: BARWHC3 11:41
PROVIDERS: ATTEND Surgery Plastic and Reconstructive Surgery
DX: K21.9 Gastro-esophageal reflux disease without esophagitis (principal); E66.01 Morbid (severe) obesity due to excess calories; E11.9 Type 2 diabetes mellitus without complications; F31.9 Bipolar disorder, unspecified; F41.1 Generalized anxiety disorder; F43.10 Post-traumatic stress disorder, unspecified; E78.5 Hyperlipidemia, unspecified; M16.0 Bilateral primary osteoarthritis of hip; M47.816 Spondylosis without myelopathy or radiculopathy, lumbar region; Z68.43 Body mass index [BMI] 50.0-59.9, adult
CPT/HCPCS: 99212

== ENCOUNTER → 2023-11-06 | Outpatient (CLI) | payer OTHER ==
--- NOTE | 2023-11-10 12:29 | MM ---
Reason for Exam: Screening (asymptomatic). Baseline mammogram. Patient History: Menarche at age 10. First Full-Term at age 31. Late child-bearing (after 30). Maternal aunt had breast cancer at or over age 50. Last menstrual period: 10/30/2023 Risk Values: Bibi 5 year model risk: 1.1%. NCI Lifetime model risk: 14.4%. Prior Study Comparison: Patient's first Mammogram. Tissue Density: There are scattered areas of fibroglandular density. Findings: Analyzed By CAD. Right breast: There is no suspicious group of microcalcifications or new suspicious mass. Left breast: There is no suspicious group of microcalcifications or new suspicious mass. Overall Assessment: Negative, BI-RAD 1 Management: Screening Mammogram of both breasts in [address] [facility] will attempt to contact patient to return for supplemental views and ultrasound if indicated. Patient should continue monthly self-breast exams. A clinical breast exam by your physician is recommended on an annual basis. This exam should not preclude additional follow-up of suspicious palpable abnormalities. Note on Bibi scores and lifetime risk: 1. A Bibi score greater than 3% is considered moderate risk. If this is the case, consider specialist referral to assess eligibility for a risk reducing agent. 2. If overall lifetime risk for the development of breast cancer is 20% or higher, the patient may qualify for future screening with alternating mammogram and breast MRI. Electronically signed and approved by: Dario Bianchi DO
== END | disposition home or self-care (01) ==
LOC: RADMAMWWP 11:57
PROVIDERS: ATTEND Family Medicine
DX: Z12.31 Encounter for screening mammogram for malignant neoplasm of breast (principal); Z80.3 Family history of malignant neoplasm of breast
CPT/HCPCS: 77063; 77067